=== PATIENT | male | born 1930 | race Caucasian/White ===

== ENCOUNTER 2016-06-14 | Outpatient (CLI) | payer MEDICARE | END 2016-06-14 10:16 | disposition EMS.NT ==

== ENCOUNTER 2016-07-22 08:11 | Day surgery (SDC) | payer MEDICARE, MEDICAID ==
[2016-07-22] MEDS ORDERED: PHENYLEPHRINE 2.5% OPHTH 2 ML DROPS ONE (08:20)
[2016-07-22] MEDS ORDERED: TRIAMCIN/MOXIFLOX/VANCO 1 ML VIAL IO ONE (08:31)
[2016-07-22] MEDS ORDERED: BSS/LIDOCAINE/EPINEPHRINE 1 ML SYRINGE IO ONE (08:31)
[2016-07-22] MEDS ORDERED: CHONDR SULF/HYALURONATE SYRINGE IO ONE (08:31)
[2016-07-22] MEDS ORDERED: BRIMONIDINE 0.2% OPHTH DROPS 5 ML OPTH ONE (08:31)
[2016-07-22] MEDS ORDERED: levoFLOXacin 0.5% OPHTH DROPS 5 ML OPTH ONE (08:31)
[2016-07-22] MEDS ORDERED: EPINEPHrine 1 MG/ML AMP IVP ONE (08:31)
[2016-07-22] MEDS ORDERED: KETOROLAC 0.45% OPHTH DROPS OPTH ONE (08:40)
[2016-07-22] MEDS ORDERED: CYCLOPENTOLATE 1% OPHTH DROPS 2 ML OPTH ONE (08:40)
[2016-07-22] MEDS ORDERED: PHENYLEPHRINE 2.5% OPHTH 2 ML DROPS OPTH ONE (08:40)
[2016-07-22] MEDS ORDERED: PROPARACAINE 0.5% OPHTH DROPS 15 ML OPTH ONE (08:40)
[2016-07-22] MEDS ORDERED: LACTATED RINGERS 500 ML IV ONE ×2 (09:00→09:29)
[2016-07-22] MEDS ORDERED: MIDAZOLAM 2 MG/2 ML VIAL IVP ONE (09:09)
== END 2016-07-22 08:12 | disposition home or self-care (01) ==
PROC: 08RK3JZ Replacement of Left Lens with Synthetic Substitute, Percutaneous Approach (ICD-10-PCS; principal; 2016-07-22 09:30)
DX: H25.12 Age-related nuclear cataract, left eye (principal); I10 Essential (primary) hypertension; E78.5 Hyperlipidemia, unspecified; Z83.3 Family history of diabetes mellitus; Z82.49 Family history of ischemic heart disease and other diseases of the circulatory system; Z83.511 Family history of glaucoma; Z82.61 Family history of arthritis
CPT/HCPCS: 66984; A9270; V2632

== ENCOUNTER 2016-08-05 07:58 | Outpatient (CLI) | payer MEDICARE, MEDICAID | END 2016-08-05 07:59 | disposition home or self-care (01) | DX: I10 Essential (primary) hypertension (principal); R73.01 Impaired fasting glucose; C61 Malignant neoplasm of prostate; E78.5 Hyperlipidemia, unspecified ==

== ENCOUNTER 2016-08-15 19:08 | Outpatient (CLI) | payer MEDICARE, MEDICAID | END 2016-08-15 19:09 | disposition EMS.NT | DX: Z03.89 Encounter for observation for other suspected diseases and conditions ruled out (principal) ==

== ENCOUNTER 2016-09-15 22:06 | Outpatient (CLI) | payer MEDICARE, MEDICAID | END 2016-09-15 22:07 | disposition EMS.NT | DX: Z03.89 Encounter for observation for other suspected diseases and conditions ruled out (principal); W01.0XXA Fall on same level from slipping, tripping and stumbling without subsequent striking against object, initial encounter; Y92.009 Unspecified place in unspecified non-institutional (private) residence as the place of occurrence of the external cause ==

== ENCOUNTER 2016-09-15 23:40 | Outpatient (CLI) | payer MEDICARE, MEDICAID | END 2016-09-15 23:41 | disposition EMS.NT | DX: Z03.89 Encounter for observation for other suspected diseases and conditions ruled out (principal); W01.0XXA Fall on same level from slipping, tripping and stumbling without subsequent striking against object, initial encounter; Y92.009 Unspecified place in unspecified non-institutional (private) residence as the place of occurrence of the external cause ==

== ENCOUNTER 2016-09-17 09:28 | Outpatient (CLI) | payer MEDICARE, MEDICAID | END 2016-09-17 09:29 | disposition EMS.NT | DX: M54.9 Dorsalgia, unspecified (principal); W01.0XXA Fall on same level from slipping, tripping and stumbling without subsequent striking against object, initial encounter; Y92.009 Unspecified place in unspecified non-institutional (private) residence as the place of occurrence of the external cause ==

== ENCOUNTER 2016-09-22 16:31 | Outpatient (CLI) | payer MEDICARE, MEDICAID | END 2016-09-22 23:59 | disposition EMS.NT | DX: M54.9 Dorsalgia, unspecified (principal) ==

== ENCOUNTER 2016-11-26 21:28 | Outpatient (CLI) | payer MEDICARE, MEDICAID | END 2016-11-26 21:29 | disposition EMS.NT | DX: Z03.89 Encounter for observation for other suspected diseases and conditions ruled out (principal); W01.0XXA Fall on same level from slipping, tripping and stumbling without subsequent striking against object, initial encounter; Y92.009 Unspecified place in unspecified non-institutional (private) residence as the place of occurrence of the external cause ==

== ENCOUNTER 2017-01-06 07:26 | Day surgery (SDC) | payer MEDICARE, MEDICAID ==
[~2017-01-06 07:26] MED LIST: BRIMONIDINE 0.2% OPHTH DROPS 5 ML ONE; CYCLOPENTOLATE 1% OPHTH DROPS 2 ML ONE; KETOROLAC 0.45% OPHTH DROPS ONE; PHENYLEPHRINE 2.5% OPHTH 2 ML DROPS ONE; PROPARACAINE 0.5% OPHTH DROPS 15 ML ONE; TIMOLOL 0.5% OPHTH DROPS ONE
[2017-01-06] MEDS ORDERED: LACTATED RINGERS 500 ML IV ONE (07:34)
[2017-01-06] MEDS ORDERED: PHENYLEPHRINE 2.5% OPHTH 2 ML DROPS OPTH ONE (07:45)
[2017-01-06] MEDS ORDERED: PROPARACAINE 0.5% OPHTH DROPS 15 ML OPTH ONE ×2 (07:45→09:00)
[2017-01-06] MEDS ORDERED: KETOROLAC 0.45% OPHTH DROPS OPTH ONE (07:45)
[2017-01-06] MEDS ORDERED: CYCLOPENTOLATE 1% OPHTH DROPS 2 ML OPTH ONE (07:45)
[2017-01-06] MEDS ORDERED: BSS/LIDOCAINE/EPINEPHRINE 1 ML SYRINGE IO ONE ×2 (09:00)
[2017-01-06] MEDS ORDERED: BRIMONIDINE 0.2% OPHTH DROPS 5 ML OPTH ONE (09:00)
[2017-01-06] MEDS ORDERED: TRIAMCIN/MOXIFLOX/VANCO 1 ML VIAL IO ONE ×2 (09:00)
[2017-01-06] MEDS ORDERED: TIMOLOL 0.5% OPHTH DROPS OPTH ONE (09:00)
[2017-01-06] MEDS ORDERED: CHONDR SULF/HYALURONATE SYRINGE IO ONE (09:00)
[2017-01-06] MEDS ORDERED: EPINEPHrine 1 MG/ML AMP IVP ONE (09:00)
[2017-01-06] MEDS ORDERED: LIDOCAINE-MPF 2% 5 ML VIAL IM ONE (09:04)
[2017-01-06] MEDS ORDERED: PROPOFOL 200 MG/20 ML VIAL IVP ONE (09:04)
[2017-01-06] MEDS ORDERED: MIDAZOLAM 2 MG/2 ML VIAL IVP ONE (09:04)
--- NOTE | 2017-01-06 09:46 | OPERATIVE REPORT ---
DATE OF SURGERY: 01/06/2017 00:00:00 PREOPERATIVE DIAGNOSIS: Visually significant cataract, right eye. This was a complex cataract surgery due to small pupil requiring pupil expansion, most likely due to the use of Flomax, so Malyugin ring was used. Cataract surgery was performed on the left eye 07/22/2016. POSTOPERATIVE DIAGNOSIS: Visually significant cataract, right eye. This was a complex cataract surger y due to small pupil requiring pupil expansion, most likely due to the use of Flomax, so Malyugin rin g was used. Cataract surgery was performed on the left eye on 07/22/2016. NAME OF PROCEDURE: Phacoemulsification of posterior chamber intraocular lens implant, right eye. SURGEON: Nabil Cabrera MD. ANESTHESIA: Monitored anesthesia care. COMPLICATIONS: None. OPERATIVE INDICATIONS: This is an 86-year-old man with progressive vision loss in the right eye due t o 3+ nuclear sclerotic cataract. Best corrected visual acuity was 20/50 with glare to 20/400 in the r ight eye. Indications for surgery were difficulty seeing words on the computer screen, difficulty ross ding, difficulty seeing words or game scores on TV. He was consented at length concerning the risks a nd benefits of cataract surgery, after which he expressed a desire to proceed with surgery. OPERATIVE PROCEDURE: The patient was taken into OR #2 and placed under monitored anesthesia care. A s urgical time-out was conducted confirming the correct patient, correct procedure and correct surgical site. He was given topical anesthesia and then prepped and draped in the usual sterile fashion. The eye was entered at the 12 and 9 o'clock positions. Intracameral Shugarcaine was injected into the ant erior chamber followed by Viscoat. A 7.0 mm Malyugin ring was then injected into the anterior chamber and engaged the pupil at 4 points to expand the pupil. A continuous tear curvilinear capsulorrhexis was performed. The nucleus was hydrodissected and phacoemulsified. The cortex was evacuated using aut omated infusion aspiration. Provisc was injected into the capsular bag and an 18.5 diopter intraocula r lens was inserted into the bag. Malyugin ring was then disinserted from the pupil margin and remove d from the anterior chamber. Approximately 0.7 mL of a mixture of triamcinolone, moxifloxacin, and va ncomycin was injected subconjunctivally in the superior quadrant for infection and inflammation proph ylaxis. I/A was used to evacuate the viscoelastic materials. The eye was inflated to physiologic pres sure using balanced salt solution and found to be watertight. The patient was taken from the [facility] room in good condition and given postoperative instructions. JOB #: [id number] EXT JOB #:[id number]
[2017-01-06 10:16] VITALS: BP 146/51
== END 2017-01-06 07:27 | disposition home or self-care (01) ==
LOC: SDS 07:26
PROVIDERS: ATTEND Ophthalmology
PROC: 08RJ3JZ Replacement of Right Lens with Synthetic Substitute, Percutaneous Approach (ICD-10-PCS; principal; 2017-01-06 09:00)
DX: H25.11 Age-related nuclear cataract, right eye (principal); I11.0 Hypertensive heart disease with heart failure; I50.9 Heart failure, unspecified; E78.5 Hyperlipidemia, unspecified; K21.9 Gastro-esophageal reflux disease without esophagitis; Z83.511 Family history of glaucoma; Z82.49 Family history of ischemic heart disease and other diseases of the circulatory system; Z83.3 Family history of diabetes mellitus; Z82.61 Family history of arthritis; Z85.46 Personal history of malignant neoplasm of prostate
CPT/HCPCS: 66982; A9270; J3490; V2632

== ENCOUNTER 2017-01-10 17:06 | Outpatient (CLI) | payer MEDICARE, MEDICAID | END 2017-01-10 17:07 | disposition short-term general hospital (02) | LOC: EMS 17:06 | PROVIDERS: ATTEND Surgery | DX: R07.81 Pleurodynia (principal); W18.30XA Fall on same level, unspecified, initial encounter; Z91.81 History of falling | CPT/HCPCS: A0425; A0429 ==

== ENCOUNTER 2017-02-02 17:40 | Outpatient (CLI) | payer MEDICARE, MEDICAID | END 2017-02-02 17:41 | disposition EMS.NT | LOC: EMS 17:40 | PROVIDERS: ATTEND Surgery | DX: S51.011A Laceration without foreign body of right elbow, initial encounter (principal); W18.30XA Fall on same level, unspecified, initial encounter; Y92.009 Unspecified place in unspecified non-institutional (private) residence as the place of occurrence of the external cause ==

== ENCOUNTER 2017-02-07 17:53 | Outpatient (CLI) | payer MEDICARE, MEDICAID | END 2017-02-07 17:54 | disposition EMS.NT | LOC: EMS 17:53 | PROVIDERS: ATTEND Surgery | DX: R53.1 Weakness (principal); W10.9XXA Fall (on) (from) unspecified stairs and steps, initial encounter; Y92.009 Unspecified place in unspecified non-institutional (private) residence as the place of occurrence of the external cause ==

== ENCOUNTER 2017-02-15 08:43 | Outpatient (CLI) | payer MEDICARE, MEDICAID | END 2017-02-15 08:44 | disposition EMS.NT | LOC: EMS 08:43 | PROVIDERS: ATTEND Surgery | DX: Z03.89 Encounter for observation for other suspected diseases and conditions ruled out (principal); W18.30XA Fall on same level, unspecified, initial encounter; Y92.003 Bedroom of unspecified non-institutional (private) residence as the place of occurrence of the external cause ==

== ENCOUNTER 2017-02-15 15:11 | Outpatient (CLI) | payer MEDICARE, MEDICAID | END 2017-02-15 15:12 | disposition critical access hospital (66) | LOC: EMS 15:11 | PROVIDERS: ATTEND Surgery | DX: R53.1 Weakness (principal); R41.0 Disorientation, unspecified; R26.81 Unsteadiness on feet | CPT/HCPCS: A0425; A0427 ==

== ENCOUNTER 2017-02-15 15:26 | Inpatient (IN) | payer MEDICARE, MEDICAID ==
--- NOTE | 2017-02-15 16:24 | ED Physician Documentation ---
PD HPI ALTERED MENTAL STATUS - Stated complaint Stated Complaint: FALL/CONFUSED - Chief complaint Chief Complaint: Neuro - History obtained from History obtained from: Patient, EMS - History of Present Illness Timing - onset: How many days ago (several days of general weakness, worseing. Had fallen few times. Head CT done here showed no acute process. ania) Timing - duration: Days Timing - details: Gradual onset, Other (general weakness.) Quality / character: Other (general weakness with recent falls now due to it.) Associated symptoms: NVD. 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 denies: Fever, Chills Nose: denies: Rhinorrhea / runny nose, Congestion Throat: denies: Sore throat Cardiac: denies: Chest pain / pressure, Palpitations Respiratory: denies: Dyspnea, Cough GI: reports: Nausea. denies: Vomiting, Diarrhea Neurologic: reports: Generalized weakness (resulting in several falls the past few days, and then could not get up from floor last night.). denies: Focal weakness, Numbness Psychiatric: denies: Depressed, Suicidal, Anxiety Endocrine: denies: Weight loss, Easy bruising / bleeding Immunocompromised: reports: Immunocompromised PD PAST MEDICAL HISTORY - Past Medical History Cardiovascular: Congestive heart failure, Hypertension, High cholesterol Respiratory: None Endocrine/Autoimmune: None GI: GERD : Benign prostate hypertrophy HEENT: Chronic vision loss, Chronic hearing loss, Other Psych: None Musculoskeletal: Osteoarthritis, Fatigue, Chronic back pain, Other Derm: Other - Past Surgical History HEENT: Cataracts - Present Medications Home Medications: Ambulatory Orders Medication Instructions Recorded Confirmed Lisinopril/Hydrochlorothiazide 2 tab PO DAILY 07/22/16 02/15/17 [Lisinopril-Hctz 20-25 mg Tab] Simvastatin 40 mg PO DAILY 07/22/16 02/15/17 Tamsulosin [Flomax] 0.4 mg PO DAILY 07/22/16 02/15/17 Aspirin 81 mg PO DAILY 02/15/17 02/15/17 Omeprazole [PriLOSEC] 20 mg PO DAILY 02/15/17 02/15/17 - Allergies Allergies/Adverse Reactions: Allergies Allergy/AdvReac Type Severity Reaction Status Date / Time No Known Drug Allergies Allergy Verified 07/20/15 14:47 - Living Situation Living Situation: reports: Alone Living Arrangement: reports: At home - Social History Does the pt smoke?: No Does the pt drink ETOH?: No Does the pt have substance abuse?: No - Family History Family history: reports: Non contributory - Immunizations Immunizations are current?: Yes PD ED PE NORMAL - General General: Alert and oriented X 3, No acute distress, Well developed/nourished, Other (moderately disheveled without basic grooming recently. ) - HEENT HEENT: Atraumatic, PERRL, Moist mucous membranes, Pharynx benign, Other ( abrasion with minimal tenderness top of head/scalp. ) - Neck Neck: Supple, no meningeal sign, No adenopathy, No JVD - Cardiac Cardiac: RRR, No murmur - Respiratory Respiratory: No respiratory distress, Other (some wheezing noted. No coarse sounds. ) - Abdomen Abdomen: Soft, Non tender - Male Male : Deferred - Rectal Rectal: Deferred - Back Back: No CVA TTP - Derm Derm: Normal color, Warm and dry - Extremities Extremities: Normal ROM s pain, No edema, No calf tenderness / cord - Neuro Neuro: Alert and oriented X 3, No sensory deficit, Normal speech, Other ( generally weaker with unable to lift legs and get around. ) - Psych Psych: Normal mood, Normal affect Results - Vitals Vitals: Vital Signs - 24 hr 02/15/17 02/15/17 02/15/17 15:28 18:34 19:18 Temperature 36.6 C Heart Rate 67 71 73 Respiratory 15 16 16 Rate Blood Pressure 104/44 L 100/86 H 122/90 H O2 Saturation 98 96 99 Oxygen O2 Source Room air - Labs Labs: Laboratory Tests 02/15/17 02/15/17 02/15/17 16:48 17:03 17:03 WBC 15.6 H RBC 3.50 L Hgb 11.8 L Hct 34.9 L MCV 99.7 H MCH 33.7 H MCHC 33.8 RDW 13.8 Plt Count 148 MPV 8.6 Neut # 13.0 H Lymph # 1.6 [place] # 1.0 Eos # 0.1 Baso # 0.0 Absolute Nucleated RBC 0.00 Nucleated RBC % 0.0 Sodium 122 L Potassium 4.2 Chloride 88 L Carbon Dioxide 26 Anion Gap 8.0 BUN 21 H Creatinine 1.1 Estimated GFR (MDRD) 63 L Glucose 126 H Calcium 8.4 L Magnesium 1.6 L Total Bilirubin 1.1 H AST 90 H ALT 30 Alkaline Phosphatase 143 H Total Creatine Kinase 861 H Total Protein 5.9 L Albumin 2.7 L Globulin 3.2 Albumin/Globulin Ratio 0.8 L Lipase 17 L TSH Urine Color YELLOW Urine Clarity CLEAR Urine pH 5.5 Ur Specific [place] <=1.005 Urine Protein NEGATIVE Urine Glucose (UA) NEGATIVE Urine Ketones NEGATIVE Urine Occult Blood NEGATIVE Urine Nitrite NEGATIVE Urine Bilirubin NEGATIVE Urine Urobilinogen 0.2 (NORMAL) Ur Leukocyte Esterase NEGATIVE Ur Microscopic Review NOT INDICATED Urine Culture Comments NOT INDICATED Ethyl Alcohol < 5.0 02/15/17 17:03 WBC RBC Hgb Hct MCV MCH MCHC RDW Plt Count MPV Neut # Lymph # [place] # Eos # Baso # Absolute Nucleated RBC Nucleated RBC % Sodium Potassium Chloride Carbon Dioxide Anion Gap BUN Creatinine Estimated GFR (MDRD) Glucose Calcium Magnesium Total Bilirubin AST ALT Alkaline Phosphatase Total Creatine Kinase Total Protein Albumin Globulin Albumin/Globulin Ratio Lipase TSH 3.47 Urine Color Urine Clarity Urine pH Ur Specific [place] Urine Protein Urine Glucose (UA) Urine Ketones Urine Occult Blood Urine Nitrite Urine Bilirubin Urine Urobilinogen Ur Leukocyte Esterase Ur Microscopic Review Urine Culture Comments Ethyl Alcohol - Rads (name of study) head CT Radiology: Prelim report reviewed (no acute process seen. No bleeding. ) PD MEDICAL DECISION MAKING - ED course Complexity details: reviewed results (CT head okay. labs are showing some elevation CK to 800s. UA is okay. He is generally weak. Had been unable to get up from floor. Poor social support as well. ), re-evaluated patient (still general weakness, unable to get himself up, low sodium acutely. Consider infection. ), considered differential, d/w patient Departure - Departure Disposition: ED Place in Observation Clinical Impression: Weakness, Hyponatremia, Elevated creatine kinase level Fall from slip, trip, or stumble Qualifiers: Encounter type: initial encounter Qualified Code(s): W01.0XXA - Fall on same level from slipping, tripping and stumbling without subsequent striking against object, initial encounter Condition: Stable Record reviewed to determine appropriate education?: Yes Discharge Date/Time: 02/15/17 20:30
[2017-02-15] MEDS ORDERED: SODIUM CHLORIDE 0.9% 1,000 ML IV ONE ×2 (16:44→19:06)
[2017-02-15 17:10] LABS: BASOPHILS % (AUTO) 0.2 %; EOSINOPHILS # (AUTO) 0.1 10^3/uL (0.0-0.7); EOSINOPHILS % (AUTO) 0.5 %; HCT - HEMATOCRIT 34.9 % (42.0-52.0); HGB - HEMOGLOBIN 11.8 g/dL (14.0-18.0); LYMPHOCYTES # (AUTO) 1.6 10^3/uL (1.5-3.5); LYMPHOCYTES % (AUTO) 10.2 %; MEAN CORPUSCULAR HEMOGLOBIN 33.7 pg (27.0-31.0); MEAN CORPUSCULAR HGB CONC 33.8 g/dL (32.0-36.0); MEAN CORPUSCULAR VOLUME 99.7 fL (80.0-94.0); MEAN PLATELET VOLUME 8.6 fL (7.4-11.4); MONOCYTES % (AUTO) 6.2 %; NEUTROPHILS % (AUTO) 82.9 %; RED CELL DISTRIBUTION WIDTH 13.8 % (12.0-15.0); UNCORRECTED WHITE BLOOD COUNT 15.6 x10^3/uL; WHITE BLOOD COUNT 15.6 x10^3/uL (4.8-10.8)
[2017-02-15 17:27] LABS: ALBUMIN/GLOBULIN RATIO 0.8 (1.0-2.2); BILIRUBIN,TOTAL 1.1 mg/dL (0.2-1.0); BUN - BLOOD UREA NITROGEN 21 mg/dL (6-20); CALCIUM 8.4 mg/dL (8.5-10.3); CARBON DIOXIDE - CO2 26 mmol/L (21-32); CHLORIDE 88 mmol/L (101-111); CREATININE 1.1 mg/dL (0.6-1.2); GFR - MDRD 63 (>89); GLUCOSE 126 mg/dL (70-100); LIPASE 17 U/L (22-51); MAGNESIUM 1.6 mg/dL (1.7-2.8); POTASSIUM 4.2 mmol/L (3.5-5.0); SODIUM 122 mmol/L (135-145); TOTAL PROTEIN 5.9 g/dL (6.7-8.2)
[2017-02-15 17:33] LABS: BILIRUBIN,URINE NEGATIVE (NEGATIVE); PH,URINE 5.5 PH (5.0-7.5)
[2017-02-15 17:34] LABS: UA CHARGE (STRIP ONLY) YES; UR CULTURE IF IND NOT INDICATED
--- NOTE | 2017-02-15 18:54 | CT Preliminary Report ---
Exam: CT Head W/O IMPRESSION: No acute intracranial CT abnormality. No evidence of hemorrhage or mass effect. [facility] SITE ID: [id number]
--- NOTE | 2017-02-15 18:57 | CT Report ---
EXAM: CT HEAD EXAM DATE: 02/15/2017 06:27 PM. CLINICAL HISTORY: Fell last night, struck head; weakness today. COMPARISON: 07/20/2015. TECHNIQUE: Multiaxial CT images were obtained from the foramen magnum to the vertex. IV contrast: Non e. Reformats: Coronal. In accordance with CT protocol optimization, one or more of the following dose reduction techniques w ere utilized for this exam: automated exposure control, adjustment of mA and/or KV based on patient s ize, or use of iterative reconstructive technique. FINDINGS: Parenchyma: No intraparenchymal hemorrhage. No evidence of mass, midline shift, or CT findings of acu te infarction. Scattered periventricular white matter hypodensity may represent small vessel ischemic disease. Extraaxial Spaces: There is generalized volume loss. No subdural or epidural collections identified. Ventricles: Normal in size and position. Sinuses: Imaged paranasal sinuses, orbits, and mastoids show no significant abnormality. Bones: No evidence of fracture or calvarial defect. Other: None. IMPRESSION: No acute intracranial CT abnormality. No evidence of hemorrhage or mass effect. [facility] Referring Provider Line: [phone] SITE ID: [id number]
[2017-02-15] MEDS ORDERED: MAGNESIUM SULFATE 2 GM in SODIUM CHLORIDE 0.9% 50 ML IV ONE (19:52)
[2017-02-15] MEDS ORDERED: ONDANSETRON 4 MG/2 ML VIAL IVP PRN (19:52)
[2017-02-15] MEDS ORDERED: PROCHLORPERAZINE 10 MG/2 ML VIAL IVP PRN (19:52)
[2017-02-15] MEDS ORDERED: ACETAMINOPHEN 325 MG TABLET PO PRN (19:52)
[2017-02-15] MEDS ORDERED: SODIUM CHLORIDE FLUSH 0.9% 10 ML SYRINGE IVP PRN (19:52)
--- NOTE | 2017-02-15 21:08 | XRAY Preliminary Report ---
Exam: XR Chest 1 View IMPRESSION: 1. New airspace disease in the right lung. Differential considerations include pneumonia, aspiration, pneumonitis, or asymmetric edema. [facility] SITE ID: [id number]
--- NOTE | 2017-02-15 21:10 | XRAY Report ---
EXAM: CHEST RADIOGRAPHY EXAM DATE: 02/15/2017 08:17 PM. CLINICAL HISTORY: Leukocytosis and generalized weakness. COMPARISON: 10/27/2009. TECHNIQUE: 1 view. FINDINGS: Lungs/Pleura: There are hazy and interstitial nodular densities in the right lung. There are low lung volumes which appear chronic and unchanged. The left lung appears unchanged. Negative for pneumothor ax. Mediastinum: Mediastinal contour within normal limits. Other: None. IMPRESSION: 1. New airspace disease in the right lung. Differential considerations include pneumonia, aspiration, pneumonitis, or asymmetric edema. Javier HAYES Referring Provider Line: [phone] SITE ID: [id number]
[2017-02-15] MEDS: SODIUM CHLORIDE 0.9% 1,000 ML IV SCH (21:52)
[2017-02-15] MEDS: SODIUM CHLORIDE FLUSH 0.9% 10 ML SYRINGE IVP SCH (21:52)
--- NOTE | 2017-02-15 22:31 | HISTORY & PHYSICAL EXAMINATION ---
Chief Complaint - Chief Complaint Chief Complaint: Generalized weakness History of Present Illness - Admitted From Admitted From:: Emergency Department - History Obtained From Records Reviewed: Yes History obtained from: Patient Exam Limitations: None - History of Present Illness HPI Comment/Other: Patient is an 86-year-old gentleman with a past medical history significant for hypertension, prostate cancer status post prostatectomy in remission, hyperlipidemia, osteoarthritis and GERD who presented to the emergency department with a chief complaint of generalized weakness. The patient states that he was in his normal state of health until this past week when he states he has been having frequent falls. He states that over the last 3 days he is fallen 3 times the previous 2 times he was able to get himself up or get up with assistance. He states that last night he had just gotten out of the shower and was going back to his bed when he slipped and fell to the floor. He states that he was unable to get up from the floor and his Lifeline was out of reach therefore he was not able to get to his Lifeline. The patient states that he laid on the floor through out the night and then into the day until home health arrived at his home and noticed him on the floor. At that point EMS was called and the patient was brought into the emergency department. The patient states that he has had frequent falls over the last 6 months and recently had a fall a month ago after which he had severe pain in the left lateral chest and posterior chest. The patient states that he saw his primary care physician for this pain and was found to have rib fractures. The patient has since been using Tylenol 3 to manage this pain. He states that he continues to have pain in that left side. The patient also states that for the past few days he is also noted that he has a sore throat and has been coughing. He states that he does get coughing spells when he drinks coffee. The patient states that last night he was too weak to get himself up from the floor. The patient otherwise denies any fevers or chills. The patient denies any headache, blurred vision, runny nose, chest pain, orthopnea, PND, he states that he easily gets fatigued when exerting himself but denies any shortness of breath at rest, abdominal pain, nausea, diarrhea, urinary urgency, urinary frequency, dysuria, joint swelling, he does admit to bilateral knee pain from arthritis, he denies any neck stiffness, back pain, or neurologic deficits. On presentation to the emergency department the patient was afebrile, he was mildly hypotensive with a blood pressure of 104/44 but otherwise was not in any respiratory distress and was not hypoxic. The patient underwent routine lab work including a CBC which revealed the patient had a WBC count of 15.6. The patient's chemistry showed that he was hyponatremic with a sodium of 122, hypochloremic with a chloride of 188, hypomagnesemic with a magnesium of 1.6 and had an elevated CPK. The patient's urine analysis was negative. The patient's chest x-ray showed new airspace disease in the right lung and given his elevated white blood cell count, cough and generalized weakness this was thought likely to be a pneumonia. The patient was admitted to the [facility] for pneumonia and dehydration. History - Past Medical History Cardiovascular: reports: Hypertension, High cholesterol Respiratory: reports: None Endocrine/Autoimmune: reports: None GI: reports: GERD : reports: Benign prostate hypertrophy, Other (Prostate Cancer s/p Prostatectomy) HEENT: reports: Chronic vision loss, Chronic hearing loss, Other Psych: reports: None Musculoskeletal: reports: Osteoarthritis, Fatigue, Chronic back pain, Other Derm: reports: Other MRSA Hx?: No - Past Surgical History /RIVETER HAND: reports: Other (Prostatectomy ) HEENT: reports: Cataracts - Family & Social History Family History: Mother: (Father when patient was 9), Diabetes, Type 2, Father: , Sister: Cancer (Hodgkins Lymphoma), Brother: CAD Living arrangement: At home Living Situation: Alone Social History Notes: The patient lives alone in his home and [place]. The patient has been living in [place] since the . The patient is originally from [place], [place]. The patient was in the Armed [employer] during [employer] War II and then went back to the [place] during the [place] War. The patient was but is , his 2 months ago. The patient now lives alone he does have a caregiver that comes in 2-3 times a week. The patient has never had any children and he states that he has no living relatives. The patient states he has never smoked he does drink about 3 beers a week and denies any illicit drug use. - Substance History Use: Uses substance without health or social issues: NONE Abuse: Recurrent use of substance despite neg consequences: NONE Dependence: Experiences withdrawal or developed tolerances: NONE - POLST Patient has POLST: No POLST Status: DNR Meds/Allgy - Home Medications Home Medications: Ambulatory Orders Medication Instructions Recorded Confirmed Lisinopril/Hydrochlorothiazide 2 tab PO DAILY 07/22/16 02/15/17 [Lisinopril-Hctz 20-25 mg Tab] Simvastatin 40 mg PO DAILY 07/22/16 02/15/17 Tamsulosin [Flomax] 0.4 mg PO DAILY 07/22/16 02/15/17 Aspirin 81 mg PO DAILY 02/15/17 02/15/17 Omeprazole [PriLOSEC] 20 mg PO DAILY 02/15/17 02/15/17 - Allergies Allergies/Adverse Reactions: Allergies Allergy/AdvReac Type Severity Reaction Status Date / Time No Known Drug Allergies Allergy Verified 07/20/15 14:47 Review of Systems - Other Findings Other Findings: A comprehensive review of systems was performed the pertinent positives and negatives are stated above in the HPI and the remainder of the review of systems is negative. Exam - Vital Signs Reviewed Vital Signs: Yes Vital Signs: Vital Signs x48h Pulse Resp BP Pulse Ox 02/15/17 20:12 75 18 101/67 99 - Physical Exam General Appearance: positive: No acute distress, Alert Eyes Bilateral: positive: Normal inspection, PERRL, EOMI, No lid inflammation, Conjunctivae nml, No scleral icterus ENT: positive: ENT inspection nml, Pharynx nml, Dry mucous membranes. negative : Purulent nasal drainage, Pharyngeal erythema, Oral lesions Neck: positive: Nml inspection, Thyroid nml, No JVD, Trachea midline. negative : Thyromegaly, Lymphadenopathy (R), Lymphadenopathy (L), Stiff neck, Carotid bruit, Tracheal deviation Respiratory: positive: Chest non-tender, Rhonchi (right lower lung). negative: Wheezes, Rales Cardiovascular: positive: Regular rate & rhythm, No murmur, No gallop Peripheral Pulses: positive: 2+ Abdomen: positive: Non-tender, No organomegaly, Nml bowel sounds, No distention. negative: Guarding, Rebound, Hepatomegaly Back: positive: Nml inspection. negative: CVA tenderness (R), CVA tenderness (L ) Skin: positive: No rash, Dry. negative: Cyanosis, Diaphoresis, Decubitus Extremities: positive: Non-tender, Full ROM, Nml appearance, Pedal edema (mild bilateral) Neurologic/Psychiatric: positive: Oriented x3, CN's nml (2-12), Motor nml, Sensation nml, Mood/affect nml, Weakness (General no focal weakness) Conclusion/Plan - Problem List (1) CAP (community acquired pneumonia) Conclusion/Plan: The patient presented after a fall due to generalized weakness and inability to stand up after the fall. The patient appeared to be quite dry on presentation with a leukocytosis of 15.6. Patient also had a sodium of 122. The patient did admit to having cough for the last several days but had no fevers or chills. The patient's chest x-ray showed new airspace disease in the right lung suspicious for pneumonia. Plan: Given the patient's presentation with generalized weakness, cough and finding of right airspace disease on chest x-ray the patient will be admitted for community-acquired pneumonia. We will continue to monitor the patient's swallow as he did state that he coughs when he drinks coffee and there is some concern given the right-sided infiltrate that the patient could have aspiration. Patient will be placed on IV ceftriaxone and azithromycin Patient will be evaluated by physical therapy Patient will be given IV fluids Qualifiers: Laterality: right (2) Hyponatremia Conclusion/Plan: The patient presented with generalized weakness and appeared very dry on examination. Patient's sodium was found to be 122. According to the emergency room physician the patient was also confused on presentation however his confusion seems to have completely resolved. The patient is on lisinopril and hydrochlorothiazide which could contribute to hyponatremia. Patient's sodium in the past has been in the 130s. The patient does have a significant hyponatremia that could have caused his confusion when he presented to the emergency department. Patient appears to have hypovolemic hyponatremia likely a combination of the patient's pneumonia, dehydration and use of lisinopril and hydrochlorothiazide. Plan: Patient will be given IV fluids with normal saline We will monitor the patient's sodium We will hold patient's lisinopril and hydrochlorothiazide We will treat the patient's pneumonia. (3) Generalized weakness Conclusion/Plan: The patient has generalized weakness as he was unable to get up from the floor at his home after falling. The patient's weakness appears to have been going on for some time now as the patient has been having frequent falls recently. He states part of it is due to the fact that he has bad arthritis in his knees and has a difficult time walking. The patient does use a walker at home. Patient also likely has increased generalized weakness secondary to pneumonia and dehydration. Plan: Patient will be given IV fluids as he does appear to be dehydrated We will treat the patient's pneumonia We will hold the patient's antihypertensive medication as he was hypotensive on presentation and this could be contributing to his hyponatremia as well as his generalized weakness. (4) Rhabdomyolysis Conclusion/Plan: The patient has mild rhabdo with a CK of 861. This is likely secondary to him having laid on the floor for greater than 12 hours. The patient does not have any significant renal failure and does not have any blood in the urine. Plan: We will give the patient IV fluids and recheck CK in the morning. Qualifiers: Rhabdomyolysis type: non-traumatic Qualified Code(s): M62.82 - Rhabdomyolysis (5) Hypomagnesemia Conclusion/Plan: The patient's magnesium is 1.6 on presentation Patient likely has hypomagnesemia secondary to dehydration Plan: We will replace the patient's magnesium Monitor magnesium (6) Hypertension Conclusion/Plan: The patient has a history of hypertension and is on hydrochlorothiazide and lisinopril. However on presentation the patient had borderline low blood pressure. His blood pressure may be decreased due to his infection but the patient also appeared to be dehydrated and it is possible that he may no longer require his antihypertensive medication. The hydrochlorothiazide could be contributing to the patient's hyponatremia. Plan: We will hold antihypertensive medications and give patient IV fluids while he is hospitalized. We will have patient follow-up with his PCP to decide whether he needs to continue to be on antihypertensive medication. Qualifiers: Hypertension type: essential hypertension Qualified Code(s): I10 - Essential (primary) hypertension (7) Hyperlipidemia Conclusion/Plan: The patient has history of hyperlipidemia and does use a statin. Patient will be continued on his home dose of statin. (8) Prophylactic use of low molecular weight heparin for venous thromboembolism (VTE) Conclusion/Plan: Place patient on Lovenox while he is hospitalized for DVT prophylaxis. - Lab Results Lab results reviewed: Yes Fish Bones: 02/15/17 17:03 02/15/17 17:03 Other Lab Results: Laboratory Results WBC 15.6 x10^3/uL (4.8-10.8) H 02/15/17 17:03 RBC 3.50 10^6/uL (4.70-6.10) L 02/15/17 17:03 Hgb 11.8 g/dL (14.0-18.0) L 02/15/17 17:03 Hct 34.9 % (42.0-52.0) L 02/15/17 17:03 MCV 99.7 fL (80.0-94.0) H 02/15/17 17:03 MCH 33.7 pg (27.0-31.0) H 02/15/17 17:03 MCHC 33.8 g/dL (32.0-36.0) 02/15/17 17:03 RDW 13.8 % (12.0-15.0) 02/15/17 17:03 Plt Count 148 10^3/uL (130-450) 02/15/17 17:03 MPV 8.6 fL (7.4-11.4) 02/15/17 17:03 Neut # 13.0 10^3/uL (1.5-6.6) H 02/15/17 17:03 Lymph # 1.6 10^3/uL (1.5-3.5) 02/15/17 17:03 [place] # 1.0 10^3/uL (0.0-1.0) 02/15/17 17:03 Eos # 0.1 10^3/uL (0.0-0.7) 02/15/17 17:03 Baso # 0.0 10^3/uL (0.0-0.1) 02/15/17 17:03 Absolute Nucleated RBC 0.00 x10^3/uL 02/15/17 17:03 Nucleated RBC % 0.0 /100WBC 02/15/17 17:03 Sodium 122 mmol/L (135-145) L 02/15/17 17:03 Potassium 4.2 mmol/L (3.5-5.0) 02/15/17 17:03 Chloride 88 mmol/L (101-111) L 02/15/17 17:03 Carbon Dioxide 26 mmol/L (21-32) 02/15/17 17:03 Anion Gap 8.0 (6-13) 02/15/17 17:03 BUN 21 mg/dL (6-20) H 02/15/17 17:03 Creatinine 1.1 mg/dL (0.6-1.2) 02/15/17 17:03 Estimated GFR (MDRD) 63 (>89) L 02/15/17 17:03 Glucose 126 mg/dL (70-100) H 02/15/17 17:03 Calcium 8.4 mg/dL (8.5-10.3) L 02/15/17 17:03 Magnesium 1.6 mg/dL (1.7-2.8) L 02/15/17 17:03 Total Bilirubin 1.1 mg/dL (0.2-1.0) H 02/15/17 17:03 AST 90 IU/L (10-42) H 02/15/17 17:03 ALT 30 IU/L (10-60) 02/15/17 17:03 Alkaline Phosphatase 143 IU/L (42-121) H 02/15/17 17:03 Total Creatine Kinase 861 IU/L (22-269) H 02/15/17 17:03 Total Protein 5.9 g/dL (6.7-8.2) L 02/15/17 17:03 Albumin 2.7 g/dL (3.2-5.5) L 02/15/17 17:03 Globulin 3.2 g/dL (2.1-4.2) 02/15/17 17:03 Albumin/Globulin Ratio 0.8 (1.0-2.2) L 02/15/17 17:03 Lipase 17 U/L (22-51) L 02/15/17 17:03 TSH 3.47 uIU/mL (0.34-5.60) 02/15/17 17:03 Urine Color YELLOW 02/15/17 16:48 Urine Clarity CLEAR (CLEAR) 02/15/17 16:48 Urine pH 5.5 PH (5.0-7.5) 02/15/17 16:48 Ur Specific [place] <=1.005 (1.002-1.030) 02/15/17 16:48 Urine Protein NEGATIVE mg/dL (NEGATIVE) 02/15/17 16:48 Urine Glucose (UA) NEGATIVE mg/dL (NEGATIVE) 02/15/17 16:48 Urine Ketones NEGATIVE mg/dL (NEGATIVE) 02/15/17 16:48 Urine Occult Blood NEGATIVE (NEGATIVE) 02/15/17 16:48 Urine Nitrite NEGATIVE (NEGATIVE) 02/15/17 16:48 Urine Bilirubin NEGATIVE (NEGATIVE) 02/15/17 16:48 Urine Urobilinogen 0.2 (NORMAL) E.U./dL (NORMAL) 02/15/17 16:48 Ur Leukocyte Esterase NEGATIVE (NEGATIVE) 02/15/17 16:48 Ur Microscopic Review NOT INDICATED 02/15/17 16:48 Urine Culture Comments NOT INDICATED 02/15/17 16:48 Ethyl Alcohol < 5.0 mg/dL 02/15/17 17:03 - Diagnostic Imaging Results Diagnostic Imaging Results: positive: Final report reviewed Diagnostic Imaging Results Comments: Chest x-ray Impression: 1. New airspace disease in the right lung. Differential considerations include pneumonia, aspiration, pneumonitis or asymmetric edema. CT head Impression: No acute intracranial CT abnormality. No evidence of hemorrhage or mass-effect. Issues/Core Measures - Anticipated LOS Anticipated Stay Length: 2 or more midnights - DVT/VTE - Prophylaxis VTE/DVT Prophylaxis med ordered at admit?: Yes
[2017-02-15] MEDS: cefTRIAXone 2 GM in SODIUM CHLORIDE 0.9% MINIBAG 100 ML IV SCH (23:35)
[2017-02-16] MEDS: AZITHROMYCIN INJ 500 MG in SODIUM CHLORIDE 0.9% 250 ML IV SCH ×2 (00:25→22:21)
[2017-02-16] MEDS: SODIUM CHLORIDE FLUSH 0.9% 10 ML SYRINGE IVP SCH ×3 (03:42→21:43)
[2017-02-16] MEDS: SODIUM CHLORIDE 0.9% 1,000 ML IV SCH ×3 (04:48→21:43)
[2017-02-16 05:58] LABS: BASOPHILS % (AUTO) 0.4 %; EOSINOPHILS # (AUTO) 0.1 10^3/uL (0.0-0.7); EOSINOPHILS % (AUTO) 1.1 %; HCT - HEMATOCRIT 33.8 % (42.0-52.0); HGB - HEMOGLOBIN 11.5 g/dL (14.0-18.0); LYMPHOCYTES # (AUTO) 1.3 10^3/uL (1.5-3.5); LYMPHOCYTES % (AUTO) 12.3 %; MEAN CORPUSCULAR VOLUME 100.1 fL (80.0-94.0); MEAN PLATELET VOLUME 8.2 fL (7.4-11.4); MONOCYTES # (AUTO) 0.6 10^3/uL (0.0-1.0); MONOCYTES % (AUTO) 6.2 %; NEUTROPHILS # (AUTO) 8.2 10^3/uL (1.5-6.6); RED BLOOD COUNT 3.37 10^6/uL (4.70-6.10); UNCORRECTED WHITE BLOOD COUNT 10.2 x10^3/uL; WHITE BLOOD COUNT 10.2 x10^3/uL (4.8-10.8)
[2017-02-16 06:09] LABS: ALBUMIN/GLOBULIN RATIO 0.8 (1.0-2.2); BILIRUBIN,TOTAL 0.6 mg/dL (0.2-1.0); CALCIUM 8.2 mg/dL (8.5-10.3); MAGNESIUM 1.9 mg/dL (1.7-2.8); PHOSPHORUS 2.6 mg/dL (2.5-4.6); POTASSIUM 3.8 mmol/L (3.5-5.0); TOTAL PROTEIN 5.6 g/dL (6.7-8.2)
[2017-02-16] MEDS ORDERED: ZINC OXIDE 20% OINT 28.35 GM TUBE TOP ONE (08:22)
[2017-02-16] MEDS: IBUPROFEN 400 MG TABLET PO PRN ×2 (08:40→18:11)
[2017-02-16] MEDS: HYDROcod/ACETAM 5/325 MG TABLET PO PRN ×3 (08:40→21:44)
[2017-02-16] MEDS: POLYETHYLENE GLYCOL 3350 17 GM PACKET PO SCH (08:51)
[2017-02-16] MEDS: ENOXAPARIN 40 MG/0.4 ML SYRINGE SUBQ SCH (09:49)
[2017-02-16] MEDS: FAMOTIDINE 20 MG TABLET PO SCH (09:49)
[2017-02-16] MEDS: TAMSULOSIN 0.4 MG CAPSULE PO SCH (09:49)
[2017-02-16] MEDS: ASPIRIN CHEW 81 MG TABLET PO SCH (09:49)
--- NOTE | 2017-02-16 15:35 | PROVIDER PROGRESS NOTE ---
Assessment/Plan - Problem List (1) CAP (community acquired pneumonia) Qualifiers: Laterality: right Assessment/Plan: Pt improving but has not ambulated Continue antibiotics and present course of Tx (2) Generalized weakness Assessment/Plan: Pt not yet OOB Will check orthostatic VS Will need eval by PT before DCh (3) Fall from slip, trip, or stumble Qualifiers: Encounter type: subsequent encounter Qualified Code(s): W01.0XXD - Fall on same level from slipping, tripping and stumbling without subsequent striking against object, subsequent encounter Assessment/Plan: As above (4) Rhabdomyolysis Qualifiers: Rhabdomyolysis type: non-traumatic Qualified Code(s): M62.82 - Rhabdomyolysis Assessment/Plan: CPK improving with hydration and rest Continue plan (5) Hypertension Qualifiers: Hypertension type: essential hypertension Qualified Code(s): I10 - Essential (primary) hypertension Assessment/Plan: Stable on current meds (6) Hypomagnesemia Assessment/Plan: Improved with replacement - Current Meds Current Meds: Current Medications Generic Name Dose Route Start Last Admin Trade Name Freq PRN Reason Stop Dose Admin Acetaminophen/Hydrocodone [place] 1 tab 02/15/17 21:59 02/16/17 08:40 [place] 5/325 PO 1 tab Q4HR PRN Administration PAIN Aspirin 81 mg 02/16/17 09:00 02/16/17 09:49 [place] Aspirin PO 81 mg DAILY RAMIREZ Administration Enoxaparin Sodium 40 mg 02/16/17 09:00 02/16/17 09:49 Lovenox SUBQ 40 mg DAILY RAMIREZ Administration Famotidine 20 mg 02/16/17 09:00 02/16/17 09:49 Pepcid PO 20 mg DAILY RAMIREZ Administration Sodium Chloride 1,000 mls @ 125 mls/hr 02/15/17 20:00 02/16/17 12:52 Normal Saline 0.9% IV 125 mls/hr .Q8H RAMIREZ Administration Azithromycin 500 mg/ Sodium 250 mls @ 250 mls/hr 02/15/17 23:00 02/16/17 01: 27 Chloride IV Infused Q24H RAMIREZ Infusion Ceftriaxone Sodium 2 gm/ 100 mls @ 200 mls/hr 02/15/17 22:30 02/16/17 00:06 Sodium Chloride IV Infused Q24H RAMIREZ Infusion Ibuprofen 400 mg 02/15/17 19:52 02/16/17 08:40 Motrin PO 400 mg Q4HR PRN Administration Pain 1 to 4 Polyethylene Glycol 17 gm 02/16/17 09:00 02/16/17 08:51 Miralax PO Not Given DAILY [facility] Sodium Chloride 10 ml 02/15/17 22:00 02/16/17 07:30 Normal Saline Flush 0.9% IVP Not Given Q8HR RAMIREZ Tamsulosin HCl 0.4 mg 02/16/17 09:00 02/16/17 09:49 Flomax PO 0.4 mg DAILY RAMIREZ Administration - Lab Result Fish Bone Diagrams: 02/16/17 05:48 02/16/17 05:48 - Additional Planning My Orders: My Active Orders 02/16/17 CUL, RESPIRATORY [RM] Routine Clinical Swallow Eval w/Modified ST [ST] Routine 02/17/17 05:00 CK- CREATINE KINASE [CHEM] Routine Subjective - Subjective Patient Reports: Feeling Better Nursing Reports: Other (Very [place]) Objective Vital Signs: Vital Signs - 24 hr 02/15/17 02/16/17 02/16/17 23:30 07:40 11:35 Temperature 36.7 C 36.9 C Heart Rate [ 71 61 Brachial] Respiratory 16 16 Rate Blood Pressure 130/50 L [Left Brachial artery] Blood Pressure 114/58 L [Right Brachial artery] Blood Pressure 105/44 L [Supine] O2 Saturation 98 97 Oxygen O2 Source Room air I&O (Last 24 Hrs): Intake and Output Totals x24h 02/14/17 02/15/17 02/16/17 23:59 23:59 23:59 Intake Total 1824 Output Total 850 Balance 974 General: Alert HEENT: Other ([place] and R sided hearing aide fell out) Neck: No JVD, +2 carotid pulse wo bruit Cardiovascular: Regular rate, No murmurs Respiratory: No respiratory distress, Breath sounds nml Abdomen: Soft Extremities: No clubbing, No edema - Results Results: Laboratory Results WBC 10.2 x10^3/uL (4.8-10.8) 02/16/17 05:48 RBC 3.37 10^6/uL (4.70-6.10) L 02/16/17 05:48 Hgb 11.5 g/dL (14.0-18.0) L 02/16/17 05:48 Hct 33.8 % (42.0-52.0) L 02/16/17 05:48 MCV 100.1 fL (80.0-94.0) H 02/16/17 05:48 MCH 34.0 pg (27.0-31.0) H 02/16/17 05:48 MCHC 34.0 g/dL (32.0-36.0) 02/16/17 05:48 RDW 14.0 % (12.0-15.0) 02/16/17 05:48 Plt Count 133 10^3/uL (130-450) 02/16/17 05:48 MPV 8.2 fL (7.4-11.4) 02/16/17 05:48 Neut # 8.2 10^3/uL (1.5-6.6) H 02/16/17 05:48 Lymph # 1.3 10^3/uL (1.5-3.5) L 02/16/17 05:48 [place] # 0.6 10^3/uL (0.0-1.0) 02/16/17 05:48 Eos # 0.1 10^3/uL (0.0-0.7) 02/16/17 05:48 Baso # 0.0 10^3/uL (0.0-0.1) 02/16/17 05:48 Absolute Nucleated RBC 0.00 x10^3/uL 02/16/17 05:48 Nucleated RBC % 0.0 /100WBC 02/16/17 05:48 Sodium 132 mmol/L (135-145) L 02/16/17 05:48 Potassium 3.8 mmol/L (3.5-5.0) 02/16/17 05:48 Chloride 98 mmol/L (101-111) L 02/16/17 05:48 Carbon Dioxide 25 mmol/L (21-32) 02/16/17 05:48 Anion Gap 9.0 (6-13) 02/16/17 05:48 BUN 17 mg/dL (6-20) 02/16/17 05:48 Creatinine 1.0 mg/dL (0.6-1.2) 02/16/17 05:48 Estimated GFR (MDRD) 71 (>89) L 02/16/17 05:48 Glucose 118 mg/dL (70-100) H 02/16/17 05:48 Lactic Acid 1.0 mmol/L (0.5-2.2) 02/16/17 05:48 Calcium 8.2 mg/dL (8.5-10.3) L 02/16/17 05:48 Phosphorus 2.6 mg/dL (2.5-4.6) 02/16/17 05:48 Magnesium 1.9 mg/dL (1.7-2.8) 02/16/17 05:48 Total Bilirubin 0.6 mg/dL (0.2-1.0) 02/16/17 05:48 AST 45 IU/L (10-42) H 02/16/17 05:48 ALT 24 IU/L (10-60) 02/16/17 05:48 Alkaline Phosphatase 125 IU/L (42-121) H 02/16/17 05:48 Total Creatine Kinase 413 IU/L (22-269) H 02/16/17 05:48 Total Protein 5.6 g/dL (6.7-8.2) L 02/16/17 05:48 Albumin 2.4 g/dL (3.2-5.5) L 02/16/17 05:48 Globulin 3.2 g/dL (2.1-4.2) 02/16/17 05:48 Albumin/Globulin Ratio 0.8 (1.0-2.2) L 02/16/17 05:48 Lipase 17 U/L (22-51) L 02/15/17 17:03 TSH 3.47 uIU/mL (0.34-5.60) 02/15/17 17:03 Urine Color YELLOW 02/15/17 16:48 Urine Clarity CLEAR (CLEAR) 02/15/17 16:48 Urine pH 5.5 PH (5.0-7.5) 02/15/17 16:48 Ur Specific [place] <=1.005 (1.002-1.030) 02/15/17 16:48 Urine Protein NEGATIVE mg/dL (NEGATIVE) 02/15/17 16:48 Urine Glucose (UA) NEGATIVE mg/dL (NEGATIVE) 02/15/17 16:48 Urine Ketones NEGATIVE mg/dL (NEGATIVE) 02/15/17 16:48 Urine Occult Blood NEGATIVE (NEGATIVE) 02/15/17 16:48 Urine Nitrite NEGATIVE (NEGATIVE) 02/15/17 16:48 Urine Bilirubin NEGATIVE (NEGATIVE) 02/15/17 16:48 Urine Urobilinogen 0.2 (NORMAL) E.U./dL (NORMAL) 02/15/17 16:48 Ur Leukocyte Esterase NEGATIVE (NEGATIVE) 02/15/17 16:48 Ur Microscopic Review NOT INDICATED 02/15/17 16:48 Urine Culture Comments NOT INDICATED 02/15/17 16:48 Ethyl Alcohol < 5.0 mg/dL 02/15/17 17:03 - Procedures Procedures: Procedures REPLACEMENT OF LEFT LENS WITH SYNTH SUB, PERC APPROACH (07/22/16) REPLACEMENT OF RIGHT LENS WITH SYNTH SUB, PERC APPROACH (01/06/17)
[2017-02-16] MEDS: cefTRIAXone 2 GM in SODIUM CHLORIDE 0.9% MINIBAG 100 ML IV SCH (21:43)
[2017-02-17] MEDS: IBUPROFEN 400 MG TABLET PO PRN ×3 (04:15→20:57)
[2017-02-17] MEDS: HYDROcod/ACETAM 5/325 MG TABLET PO PRN ×3 (04:16→20:58)
[2017-02-17] MEDS: SODIUM CHLORIDE 0.9% 1,000 ML IV SCH (06:08)
[2017-02-17] MEDS: SODIUM CHLORIDE FLUSH 0.9% 10 ML SYRINGE IVP SCH (06:09)
[2017-02-17 06:15] LABS: BASOPHILS % (AUTO) 0.4 %; EOSINOPHILS # (AUTO) 0.1 10^3/uL (0.0-0.7); EOSINOPHILS % (AUTO) 1.7 %; HCT - HEMATOCRIT 30.4 % (42.0-52.0); HGB - HEMOGLOBIN 10.2 g/dL (14.0-18.0); LYMPHOCYTES # (AUTO) 1.1 10^3/uL (1.5-3.5); LYMPHOCYTES % (AUTO) 14.5 %; MEAN CORPUSCULAR HEMOGLOBIN 33.9 pg (27.0-31.0); MEAN CORPUSCULAR HGB CONC 33.5 g/dL (32.0-36.0); MEAN CORPUSCULAR VOLUME 101.3 fL (80.0-94.0); MEAN PLATELET VOLUME 8.3 fL (7.4-11.4); MONOCYTES # (AUTO) 0.9 10^3/uL (0.0-1.0); MONOCYTES % (AUTO) 11.9 %; NEUTROPHILS # (AUTO) 5.6 10^3/uL (1.5-6.6); NEUTROPHILS % (AUTO) 71.5 %; RED CELL DISTRIBUTION WIDTH 13.9 % (12.0-15.0); UNCORRECTED WHITE BLOOD COUNT 7.8 x10^3/uL; WHITE BLOOD COUNT 7.8 x10^3/uL (4.8-10.8)
[2017-02-17 06:21] LABS: ALBUMIN/GLOBULIN RATIO 0.8 (1.0-2.2); BILIRUBIN,TOTAL 0.6 mg/dL (0.2-1.0); CALCIUM 7.8 mg/dL (8.5-10.3); CREATININE 0.8 mg/dL (0.6-1.2); POTASSIUM 3.9 mmol/L (3.5-5.0); TOTAL PROTEIN 5.3 g/dL (6.7-8.2)
[2017-02-17] MEDS: ENOXAPARIN 40 MG/0.4 ML SYRINGE SUBQ SCH (08:46)
--- NOTE | 2017-02-17 08:46 | XRAY Report ---
TWO-VIEW CERVICAL SPINE: 02/17/2017 CLINICAL INDICATION: Fall, neck pain. FINDINGS: Frontal and lateral views of the cervical spine were obtained. Imaging on the lateral vie w is markedly limited, with visualization to C5. Degenerative changes are present in the upper cervi johanna spine. The visualized prevertebral soft tissues are unremarkable. IMPRESSION: MARKEDLY LIMITED IMAGING OF THE CERVICAL SPINE, WITH NO EVIDENCE OF FRACTURE IN THE UPPE R PORTION. CONSIDER CT FOR FURTHER EVALUATION. JOB #: [id number] EXT JOB #:[id number]
[2017-02-17] MEDS: FAMOTIDINE 20 MG TABLET PO SCH (08:47)
[2017-02-17] MEDS: TAMSULOSIN 0.4 MG CAPSULE PO SCH (08:47)
[2017-02-17] MEDS: ASPIRIN CHEW 81 MG TABLET PO SCH (08:47)
[2017-02-17] MEDS: POLYETHYLENE GLYCOL 3350 17 GM PACKET PO SCH (10:43)
--- NOTE | 2017-02-17 14:06 | PROVIDER PROGRESS NOTE ---
Assessment/Plan - Problem List (1) CAP (community acquired pneumonia) Qualifiers: Laterality: right Assessment/Plan: Aspiration pneumonia is suspected by clinical findings of dysphagia and R sided pneumonia. iv fell out and could not be restarted after 6 attempts. Will transition iv antibiotics to Augmentin 875 mg po bid. Pt will be DCh on this to complete a 7 day course. Plan DCh tomorrow to SNF (2) Generalized weakness Assessment/Plan: Slightly better mobility today, using a quad walker and takes about 5 steps Continue plan for SNF after DCh (3) Fall from slip, trip, or stumble Qualifiers: Encounter type: subsequent encounter Qualified Code(s): W01.0XXD - Fall on same level from slipping, tripping and stumbling without subsequent striking against object, subsequent encounter Assessment/Plan: No falls here. No c/o dizziness or lightheadedness. Will check orthostatic VS, if not yet done. (4) Rhabdomyolysis Qualifiers: Rhabdomyolysis type: non-traumatic Qualified Code(s): M62.82 - Rhabdomyolysis Assessment/Plan: Resolved with hydration. Since Pt taking po diet adequately, will cancel a restart of iv and iv fluids (5) Hypertension Qualifiers: Hypertension type: essential hypertension Qualified Code(s): I10 - Essential (primary) hypertension Assessment/Plan: Stable on current meds - Current Meds Current Meds: Current Medications Generic Name Dose Route Start Last Admin Trade Name Freq PRN Reason Stop Dose Admin Acetaminophen/Hydrocodone Bitart 1 tab 02/15/17 21:59 02/17/17 13:14 [place] 5/325 PO 1 tab Q4HR PRN Administration PAIN Aspirin 81 mg 02/16/17 09:00 02/17/17 08:47 [place] Aspirin PO 81 mg DAILY RAMIREZ Administration Enoxaparin Sodium 40 mg 02/16/17 09:00 02/17/17 08:46 Lovenox SUBQ 40 mg DAILY RAMIREZ Administration Famotidine 20 mg 02/16/17 09:00 02/17/17 08:47 Pepcid PO 20 mg DAILY RAMIREZ Administration Ibuprofen 400 mg 02/15/17 19:52 02/17/17 13:15 Motrin PO 400 mg Q4HR PRN Administration Pain 1 to 4 Polyethylene Glycol 17 gm 02/16/17 09:00 02/17/17 10:43 Miralax PO Not Given DAILY RAMIREZ Tamsulosin HCl 0.4 mg 02/16/17 09:00 02/17/17 08:47 Flomax PO 0.4 mg DAILY RAMIREZ Administration - Lab Result Fish Bone Diagrams: 02/17/17 05:17 02/17/17 05:17 - Additional Planning My Orders: My Active Orders 02/17/17 15:00 Amox/Clav 875/125 [Augmentin 875/125] 1 tab PO BID 02/17/17 Breakfast Dysphagia Puree Diet [DIET] 02/17/17 Dinner Dysphagia Puree Diet [DIET] Subjective - Subjective Patient Reports: Feeling Better Nursing Reports: No Complaints Objective Vital Signs: Vital Signs - 24 hr 02/16/17 02/16/17 02/17/17 19:11 21:44 00:42 Temperature 36.5 C 36.8 C 37 C Heart Rate [ 77 64 91 Brachial] Respiratory 17 17 20 Rate Blood Pressure 128/55 L 125/74 140/60 H [Right Brachial artery] O2 Saturation 98 96 98 02/17/17 07:34 Temperature 36.8 C Heart Rate [ 54 L Brachial] Respiratory 18 Rate Blood Pressure 126/94 H [Right Brachial artery] O2 Saturation 95 Oxygen O2 Source Room air I&O (Last 24 Hrs): Intake and Output Totals x24h 02/15/17 02/16/17 02/17/17 23:59 23:59 23:59 Intake Total 2414 860 Output Total 1050 450 Balance 1364 410 General: Alert HEENT: Other ([place]) Neck: No JVD Cardiovascular: Regular rate, No murmurs Respiratory: No respiratory distress, Breath sounds nml Abdomen: Soft Extremities: Other (Trace edema) - Results Results: Laboratory Results WBC 7.8 x10^3/uL (4.8-10.8) 02/17/17 05:17 RBC 3.00 10^6/uL (4.70-6.10) L 02/17/17 05:17 Hgb 10.2 g/dL (14.0-18.0) L 02/17/17 05:17 Hct 30.4 % (42.0-52.0) L 02/17/17 05:17 MCV 101.3 fL (80.0-94.0) H 02/17/17 05:17 MCH 33.9 pg (27.0-31.0) H 02/17/17 05:17 MCHC 33.5 g/dL (32.0-36.0) 02/17/17 05:17 RDW 13.9 % (12.0-15.0) 02/17/17 05:17 Plt Count 128 10^3/uL (130-450) L 02/17/17 05:17 MPV 8.3 fL (7.4-11.4) 02/17/17 05:17 Neut # 5.6 10^3/uL (1.5-6.6) 02/17/17 05:17 Lymph # 1.1 10^3/uL (1.5-3.5) L 02/17/17 05:17 [place] # 0.9 10^3/uL (0.0-1.0) 02/17/17 05:17 Eos # 0.1 10^3/uL (0.0-0.7) 02/17/17 05:17 Baso # 0.0 10^3/uL (0.0-0.1) 02/17/17 05:17 Absolute Nucleated RBC 0.00 x10^3/uL 02/17/17 05:17 Nucleated RBC % 0.0 /100WBC 02/17/17 05:17 Sodium 133 mmol/L (135-145) L 02/17/17 05:17 Potassium 3.9 mmol/L (3.5-5.0) 02/17/17 05:17 Chloride 99 mmol/L (101-111) L 02/17/17 05:17 Carbon Dioxide 27 mmol/L (21-32) 02/17/17 05:17 Anion Gap 7.0 (6-13) 02/17/17 05:17 BUN 14 mg/dL (6-20) 02/17/17 05:17 Creatinine 0.8 mg/dL (0.6-1.2) 02/17/17 05:17 Estimated GFR (MDRD) 91 (>89) 02/17/17 05:17 Glucose 108 mg/dL (70-100) H 02/17/17 05:17 Lactic Acid 1.0 mmol/L (0.5-2.2) 02/16/17 05:48 Calcium 7.8 mg/dL (8.5-10.3) L 02/17/17 05:17 Phosphorus 2.6 mg/dL (2.5-4.6) 02/16/17 05:48 Magnesium 1.9 mg/dL (1.7-2.8) 02/16/17 05:48 Total Bilirubin 0.6 mg/dL (0.2-1.0) 02/17/17 05:17 AST 35 IU/L (10-42) 02/17/17 05:17 ALT 24 IU/L (10-60) 02/17/17 05:17 Alkaline Phosphatase 138 IU/L (42-121) H 02/17/17 05:17 Total Creatine Kinase 161 IU/L (22-269) 02/17/17 05:17 Total Protein 5.3 g/dL (6.7-8.2) L 02/17/17 05:17 Albumin 2.3 g/dL (3.2-5.5) L 02/17/17 05:17 Globulin 3.0 g/dL (2.1-4.2) 02/17/17 05:17 Albumin/Globulin Ratio 0.8 (1.0-2.2) L 02/17/17 05:17 Lipase 17 U/L (22-51) L 02/15/17 17:03 TSH 3.47 uIU/mL (0.34-5.60) 02/15/17 17:03 Urine Color YELLOW 02/15/17 16:48 Urine Clarity CLEAR (CLEAR) 02/15/17 16:48 Urine pH 5.5 PH (5.0-7.5) 02/15/17 16:48 Ur Specific [place] <=1.005 (1.002-1.030) 02/15/17 16:48 Urine Protein NEGATIVE mg/dL (NEGATIVE) 02/15/17 16:48 Urine Glucose (UA) NEGATIVE mg/dL (NEGATIVE) 02/15/17 16:48 Urine Ketones NEGATIVE mg/dL (NEGATIVE) 02/15/17 16:48 Urine Occult Blood NEGATIVE (NEGATIVE) 02/15/17 16:48 Urine Nitrite NEGATIVE (NEGATIVE) 02/15/17 16:48 Urine Bilirubin NEGATIVE (NEGATIVE) 02/15/17 16:48 Urine Urobilinogen 0.2 (NORMAL) E.U./dL (NORMAL) 02/15/17 16:48 Ur Leukocyte Esterase NEGATIVE (NEGATIVE) 02/15/17 16:48 Ur Microscopic Review NOT INDICATED 02/15/17 16:48 Urine Culture Comments NOT INDICATED 02/15/17 16:48 Ethyl Alcohol < 5.0 mg/dL 02/15/17 17:03 - Procedures Procedures: Procedures REPLACEMENT OF LEFT LENS WITH SYNTH SUB, PERC APPROACH (07/22/16) REPLACEMENT OF RIGHT LENS WITH SYNTH SUB, PERC APPROACH (01/06/17)
[2017-02-17] MEDS: AMOX/CLAV 875 MG/125 MG TABLET PO SCH ×2 (16:15→20:57)
[2017-02-18 06:15] LABS: BASOPHILS % (AUTO) 0.4 %; EOSINOPHILS # (AUTO) 0.1 10^3/uL (0.0-0.7); EOSINOPHILS % (AUTO) 1.8 %; HCT - HEMATOCRIT 33.2 % (42.0-52.0); HGB - HEMOGLOBIN 11.3 g/dL (14.0-18.0); LYMPHOCYTES # (AUTO) 1.5 10^3/uL (1.5-3.5); LYMPHOCYTES % (AUTO) 21.2 %; MEAN CORPUSCULAR HEMOGLOBIN 34.1 pg (27.0-31.0); MEAN CORPUSCULAR VOLUME 100.3 fL (80.0-94.0); MEAN PLATELET VOLUME 7.9 fL (7.4-11.4); MONOCYTES # (AUTO) 1.1 10^3/uL (0.0-1.0); MONOCYTES % (AUTO) 14.9 %; NEUTROPHILS # (AUTO) 4.5 10^3/uL (1.5-6.6); NEUTROPHILS % (AUTO) 61.7 %; RED BLOOD COUNT 3.31 10^6/uL (4.70-6.10); RED CELL DISTRIBUTION WIDTH 13.8 % (12.0-15.0); UNCORRECTED WHITE BLOOD COUNT 7.2 x10^3/uL; WHITE BLOOD COUNT 7.2 x10^3/uL (4.8-10.8)
[2017-02-18] MEDS: POLYETHYLENE GLYCOL 3350 17 GM PACKET PO SCH (07:49)
[2017-02-18] MEDS: ASPIRIN CHEW 81 MG TABLET PO SCH (08:44)
[2017-02-18] MEDS: TAMSULOSIN 0.4 MG CAPSULE PO SCH (08:45)
[2017-02-18] MEDS: ENOXAPARIN 40 MG/0.4 ML SYRINGE SUBQ SCH (08:45)
[2017-02-18] MEDS: AMOX/CLAV 875 MG/125 MG TABLET PO SCH ×2 (08:45→21:39)
[2017-02-18] MEDS: FAMOTIDINE 20 MG TABLET PO SCH (08:45)
--- NOTE | 2017-02-18 17:51 | PROVIDER PROGRESS NOTE ---
Assessment/Plan - Problem List (1) CAP (community acquired pneumonia) Qualifiers: Laterality: right Assessment/Plan: Improving on antibiotics (2) Generalized weakness Assessment/Plan: PT advises SNF but Pt is refusing. No family to help him make decisions. He gets home health care and Social Work has applied for more frequent visits Will assess for safety of [facility] tomorrow (3) Fall from slip, trip, or stumble Qualifiers: Encounter type: subsequent encounter Qualified Code(s): W01.0XXD - Fall on same level from slipping, tripping and stumbling without subsequent striking against object, subsequent encounter Assessment/Plan: As above. (4) Rhabdomyolysis Qualifiers: Rhabdomyolysis type: non-traumatic Qualified Code(s): M62.82 - Rhabdomyolysis Assessment/Plan: Resolved (5) Hypertension Qualifiers: Hypertension type: essential hypertension Qualified Code(s): I10 - Essential (primary) hypertension Assessment/Plan: Stable on current meds - Current Meds Current Meds: Current Medications Generic Name Dose Route Start Last Admin Trade Name Freq PRN Reason Stop Dose Admin Acetaminophen/Hydrocodone Bitart 1 tab 02/15/17 21:59 02/17/17 20:58 [place] 5/325 PO 1 tab Q4HR PRN Administration PAIN Amoxicillin/Clavulanate Potassium 1 tab 02/17/17 15:00 02/18/17 08:45 Augmentin 875/125 PO 1 tab BID RAMIREZ Administration Aspirin 81 mg 02/16/17 09:00 02/18/17 08:44 [facility] [place] Aspirin PO 81 mg DAILY RAMIREZ Administration Enoxaparin Sodium 40 mg 02/16/17 09:00 02/18/17 08:45 Lovenox SUBQ 40 mg DAILY RAMIREZ Administration Famotidine 20 mg 02/16/17 09:00 02/18/17 08:45 Pepcid PO 20 mg DAILY RAMIREZ Administration Ibuprofen 400 mg 02/15/17 19:52 02/17/17 20:57 Motrin PO 400 mg Q4HR PRN Administration Pain 1 to 4 Polyethylene Glycol 17 gm 02/16/17 09:00 02/18/17 07:49 Miralax PO Not Given DAILY RAMIREZ Tamsulosin HCl 0.4 mg 02/16/17 09:00 02/18/17 08:45 Flomax PO 0.4 mg DAILY RAMIREZ Administration - Lab Result Fish Bone Diagrams: 02/18/17 05:36 02/17/17 05:17 Subjective - Subjective Patient Reports: Feeling Better, Resting Comfortably Nursing Reports: Other (Nurses and PT reports that pt is trying to stand on his own and is "unsteady and at risk for falls".) Objective Vital Signs: Vital Signs - 24 hr 02/18/17 02/18/17 02/18/17 00:00 07:31 15:26 Temperature 36.9 C 36.4 C L 37.5 C Heart Rate [ 75 74 116 H Brachial] Respiratory 18 18 20 Rate Blood Pressure 150/62 H 140/45 H 146/71 H [Right Brachial artery] O2 Saturation 99 96 98 Oxygen O2 Source Room air I&O (Last 24 Hrs): Intake and Output Totals x24h 02/16/17 02/17/17 02/18/17 23:59 23:59 23:59 Intake Total 2414 1580 1620 Output Total 1050 450 150 Balance 1364 1130 1470 General: Other ([place]) HEENT: Mucous membr. moist/pink Neck: Supple Cardiovascular: Regular rate Respiratory: No respiratory distress, Breath sounds nml Abdomen: Soft Extremities: No edema - Results Results: Laboratory Results WBC 7.2 x10^3/uL (4.8-10.8) 02/18/17 05:36 RBC 3.31 10^6/uL (4.70-6.10) L 02/18/17 05:36 Hgb 11.3 g/dL (14.0-18.0) L 02/18/17 05:36 Hct 33.2 % (42.0-52.0) L 02/18/17 05:36 MCV 100.3 fL (80.0-94.0) H 02/18/17 05:36 MCH 34.1 pg (27.0-31.0) H 02/18/17 05:36 MCHC 34.0 g/dL (32.0-36.0) 02/18/17 05:36 RDW 13.8 % (12.0-15.0) 02/18/17 05:36 Plt Count 151 10^3/uL (130-450) 02/18/17 05:36 MPV 7.9 fL (7.4-11.4) 02/18/17 05:36 Neut # 4.5 10^3/uL (1.5-6.6) 02/18/17 05:36 Lymph # 1.5 10^3/uL (1.5-3.5) 02/18/17 05:36 [place] # 1.1 10^3/uL (0.0-1.0) H 02/18/17 05:36 Eos # 0.1 10^3/uL (0.0-0.7) 02/18/17 05:36 Baso # 0.0 10^3/uL (0.0-0.1) 02/18/17 05:36 Absolute Nucleated RBC 0.00 x10^3/uL 02/18/17 05:36 Nucleated RBC % 0.0 /100WBC 02/18/17 05:36 Sodium 133 mmol/L (135-145) L 02/17/17 05:17 Potassium 3.9 mmol/L (3.5-5.0) 02/17/17 05:17 Chloride 99 mmol/L (101-111) L 02/17/17 05:17 Carbon Dioxide 27 mmol/L (21-32) 02/17/17 05:17 Anion Gap 7.0 (6-13) 02/17/17 05:17 BUN 14 mg/dL (6-20) 02/17/17 05:17 Creatinine 0.8 mg/dL (0.6-1.2) 02/17/17 05:17 Estimated GFR (MDRD) 91 (>89) 02/17/17 05:17 Glucose 108 mg/dL (70-100) H 02/17/17 05:17 Lactic Acid 1.0 mmol/L (0.5-2.2) 02/16/17 05:48 Calcium 7.8 mg/dL (8.5-10.3) L 02/17/17 05:17 Phosphorus 2.6 mg/dL (2.5-4.6) 02/16/17 05:48 Magnesium 1.9 mg/dL (1.7-2.8) 02/16/17 05:48 Total Bilirubin 0.6 mg/dL (0.2-1.0) 02/17/17 05:17 AST 35 IU/L (10-42) 02/17/17 05:17 ALT 24 IU/L (10-60) 02/17/17 05:17 Alkaline Phosphatase 138 IU/L (42-121) H 02/17/17 05:17 Total Creatine Kinase 161 IU/L (22-269) 02/17/17 05:17 Total Protein 5.3 g/dL (6.7-8.2) L 02/17/17 05:17 Albumin 2.3 g/dL (3.2-5.5) L 02/17/17 05:17 Globulin 3.0 g/dL (2.1-4.2) 02/17/17 05:17 Albumin/Globulin Ratio 0.8 (1.0-2.2) L 02/17/17 05:17 Lipase 17 U/L (22-51) L 02/15/17 17:03 TSH 3.47 uIU/mL (0.34-5.60) 02/15/17 17:03 Urine Color YELLOW 02/15/17 16:48 Urine Clarity CLEAR (CLEAR) 02/15/17 16:48 Urine pH 5.5 PH (5.0-7.5) 02/15/17 16:48 Ur Specific [place] <=1.005 (1.002-1.030) 02/15/17 16:48 Urine Protein NEGATIVE mg/dL (NEGATIVE) 02/15/17 16:48 Urine Glucose (UA) NEGATIVE mg/dL (NEGATIVE) 02/15/17 16:48 Urine Ketones NEGATIVE mg/dL (NEGATIVE) 02/15/17 16:48 Urine Occult Blood NEGATIVE (NEGATIVE) 02/15/17 16:48 Urine Nitrite NEGATIVE (NEGATIVE) 02/15/17 16:48 Urine Bilirubin NEGATIVE (NEGATIVE) 02/15/17 16:48 Urine Urobilinogen 0.2 (NORMAL) E.U./dL (NORMAL) 02/15/17 16:48 Ur Leukocyte Esterase NEGATIVE (NEGATIVE) 02/15/17 16:48 Ur Microscopic Review NOT INDICATED 02/15/17 16:48 Urine Culture Comments NOT INDICATED 02/15/17 16:48 Ethyl Alcohol < 5.0 mg/dL 02/15/17 17:03 - Procedures Procedures: Procedures REPLACEMENT OF LEFT LENS WITH SYNTH SUB, PERC APPROACH (07/22/16) REPLACEMENT OF RIGHT LENS WITH SYNTH SUB, PERC APPROACH (01/06/17)
[2017-02-18] MEDS ORDERED: HALOPERIDOL 5 MG/ML VIAL IM ONE (18:22)
[2017-02-18 18:39] LABS: BASOPHILS % (AUTO) 0.5 %; EOSINOPHILS % (AUTO) 0.4 %; HCT - HEMATOCRIT 34.9 % (42.0-52.0); HGB - HEMOGLOBIN 11.7 g/dL (14.0-18.0); LYMPHOCYTES # (AUTO) 1.3 10^3/uL (1.5-3.5); LYMPHOCYTES % (AUTO) 15.2 %; MEAN CORPUSCULAR HEMOGLOBIN 33.5 pg (27.0-31.0); MEAN CORPUSCULAR HGB CONC 33.5 g/dL (32.0-36.0); MEAN PLATELET VOLUME 7.5 fL (7.4-11.4); MONOCYTES # (AUTO) 1.4 10^3/uL (0.0-1.0); MONOCYTES % (AUTO) 15.7 %; NEUTROPHILS % (AUTO) 68.2 %; RED BLOOD COUNT 3.49 10^6/uL (4.70-6.10); RED CELL DISTRIBUTION WIDTH 13.9 % (12.0-15.0); UNCORRECTED WHITE BLOOD COUNT 8.8 x10^3/uL; WHITE BLOOD COUNT 8.8 x10^3/uL (4.8-10.8)
[2017-02-18] MEDS: HYDROcod/ACETAM 5/325 MG TABLET PO PRN (18:52)
[2017-02-18 18:57] LABS: ALBUMIN/GLOBULIN RATIO 0.7 (1.0-2.2); BILIRUBIN,TOTAL 0.7 mg/dL (0.2-1.0); BUN - BLOOD UREA NITROGEN 13 mg/dL (6-20); CALCIUM 8.3 mg/dL (8.5-10.3); CARBON DIOXIDE - CO2 23 mmol/L (21-32); CHLORIDE 91 mmol/L (101-111); CREATININE 0.8 mg/dL (0.6-1.2); GFR - MDRD 91 (>89); GLUCOSE 142 mg/dL (70-100); POTASSIUM 4.2 mmol/L (3.5-5.0); SODIUM 126 mmol/L (135-145); TOTAL PROTEIN 6.4 g/dL (6.7-8.2)
[2017-02-18 19:08] LABS: CALCIUM, IONIZED 1.07 mmol/L (1.15-1.33); VBG PH 7.45 (7.31-7.41)
[2017-02-18 19:26] LABS: PLATELET ESTIMATE, MANUAL NORMAL (130-450,000) (NORMAL); PLATELET MORPHOLOGY NORMAL APPEARANCE (NORMAL); WBC MORPHOLOGY (MULTIPLE) 1+ HYPERSEG NEUT (NORMAL)
[2017-02-18] MEDS: IBUPROFEN 400 MG TABLET PO PRN (19:30)
[2017-02-18] MEDS ORDERED: diazePAM INJ 5 MG/ML SYRINGE IVP SCH (19:41)
[2017-02-18] MEDS ORDERED: diazePAM INJ 5 MG/ML SYRINGE IM SCH (19:59)
--- NOTE | 2017-02-18 21:51 | CT Report ---
EXAM: CT HEAD EXAM DATE: 02/18/2017 08:21 PM. CLINICAL HISTORY: Delerium, R/O CVA. COMPARISON: CT scan of the head 02/15/2017, 07/20/2015. TECHNIQUE: Multiaxial CT images were obtained from the foramen magnum to the vertex. IV contrast: Non e. Reformats: Coronal. In accordance with CT protocol optimization, one or more of the following dose reduction techniques w ere utilized for this exam: automated exposure control, adjustment of mA and/or KV based on patient s ize, or use of iterative reconstructive technique. FINDINGS: Parenchyma: Age-related volume loss is seen. Patchy area of vertical and underlying white matter hypo density is seen posteromedially at the junction of the left parietal and occipital lobes. Wedge-shape d area of hypodensity is seen in the posterior inferior right cerebellum. These are Unchanged. No int racranial mass or hemorrhage is seen. Moderate vascular calcifications are seen in the cavernous ICA. Extraaxial Spaces: Normal for age. No subdural or epidural collections identified. Ventricles: No hydrocephalus. Sinuses and orbits: Imaged paranasal sinuses, orbits, and mastoids show no significant abnormality. N ote is made of bilateral lens removal. Bones: No evidence of fracture or calvarial defect. Other: None. IMPRESSION: 1. Negative noncontrast CT scan of the head. No acute abnormality. 2. 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 These are seen posteromedially at the lef t parieto-occipital junction and in the posterior inferior right cerebellum. 3. Intracranial atherosclerotic vascular calcifications. [facility] Referring Provider Line: [phone] SITE ID: [id number]
[2017-02-18] MEDS: MAGNESIUM OXIDE 400 MG TABLET PO SCH (22:43)
[2017-02-19] MEDS ORDERED: OLANZapine 10 MG VIAL IM SCH (00:26)
[2017-02-19] MEDS ORDERED: LORazepam 2 MG/ML SYRINGE IVP PRN (00:27)
[2017-02-19] MEDS ORDERED: OLANZapine 10 MG VIAL IM ONE (00:35)
[2017-02-19] MEDS ORDERED: WATER FOR INJECTION,STERILE 10 ML ONE (00:38)
[2017-02-19] MEDS ORDERED: LORazepam 2 MG/ML SYRINGE IM PRN (01:10)
[2017-02-19] MEDS: HYDROcod/ACETAM 5/325 MG TABLET PO PRN (04:56)
[2017-02-19] MEDS: MAGNESIUM OXIDE 400 MG TABLET PO SCH ×2 (08:18→20:19)
[2017-02-19] MEDS: ENOXAPARIN 40 MG/0.4 ML SYRINGE SUBQ SCH (08:24)
[2017-02-19] MEDS: ASPIRIN CHEW 81 MG TABLET PO SCH (08:24)
[2017-02-19] MEDS: AMOX/CLAV 875 MG/125 MG TABLET PO SCH (08:24)
--- NOTE | 2017-02-19 10:59 | XRAY Preliminary Report ---
Exam: XR Chest 1 View IMPRESSION: Hypoventilation. Progressive airspace opacities. [facility] SITE ID: [id number]
--- NOTE | 2017-02-19 11:02 | XRAY Report ---
EXAM: CHEST RADIOGRAPHY EXAM DATE: 02/19/2017 10:37 AM. CLINICAL HISTORY: F/U pneumonia. COMPARISON: 02/15/2017. TECHNIQUE: 1 view. FINDINGS: Lungs/Pleura: Hypoventilation. Bilateral airspace opacities again noted. More focal consolidation is now evident in the right upper lobe distribution. No pneumothorax or pleural effusion. Mediastinum: Within exam limitations, the cardiomediastinal contour is stable. IMPRESSION: Hypoventilation. Progressive airspace opacities, as described. [facility] Referring Provider Line: [phone] SITE ID: [id number]
[2017-02-19] MEDS: FAMOTIDINE 20 MG TABLET PO SCH (11:25)
[2017-02-19] MEDS: TAMSULOSIN 0.4 MG CAPSULE PO SCH (11:26)
[2017-02-19] MEDS ORDERED: MAGNESIUM SULFATE 2 GRAM 2 GM/50 ML BAG IV SCH ×2 (11:30→14:00)
[2017-02-19] MEDS: POLYETHYLENE GLYCOL 3350 17 GM PACKET PO SCH (11:40)
[2017-02-19] MEDS: PIPERACILLIN/TAZOBACTAM 3.375 GM in SODIUM CHLORIDE 0.9% MINIBAG 100 ML IV SCH ×2 (15:59→21:55)
[2017-02-19] MEDS ORDERED: SODIUM CHLORIDE FLUSH 0.9% 10 ML SYRINGE IVP ONE ×2 (19:17→22:28)
--- NOTE | 2017-02-19 21:59 | PROVIDER PROGRESS NOTE ---
Assessment/Plan - Problem List (1) CAP (community acquired pneumonia) Qualifiers: Laterality: right Assessment/Plan: Repeat CXR showed more dense consolidation Will change to iv antibiotics for community acquired asoiration pneumonia with Zosyn (2) Generalized weakness Assessment/Plan: Pt still unsteady, walked to BR with quad walker Continue PT (3) Fall from slip, trip, or stumble Qualifiers: Encounter type: subsequent encounter Qualified Code(s): W01.0XXD - Fall on same level from slipping, tripping and stumbling without subsequent striking against object, subsequent encounter (4) Rhabdomyolysis Qualifiers: Rhabdomyolysis type: non-traumatic Qualified Code(s): M62.82 - Rhabdomyolysis (5) Hypertension Qualifiers: Hypertension type: essential hypertension Qualified Code(s): I10 - Essential (primary) hypertension - Current Meds Current Meds: Current Medications Generic Name Dose Route Start Last Admin Trade Name Freq PRN Reason Stop Dose Admin Acetaminophen/Hydrocodone Bitart 1 tab 02/15/17 21:59 02/19/17 04:56 [place] 5/325 PO 1 tab Q4HR PRN Administration PAIN Aspirin 81 mg 02/16/17 09:00 02/19/17 08:24 [facility] [place] Aspirin PO 81 mg DAILY RAMIREZ Administration Enoxaparin Sodium 40 mg 02/16/17 09:00 02/19/17 08:24 Lovenox SUBQ 40 mg DAILY RAMIREZ Administration Famotidine 20 mg 02/16/17 09:00 02/19/17 11:25 Pepcid PO 20 mg DAILY RAMIREZ Administration Piperacillin Sod/Tazobactam 100 mls @ 200 mls/hr 02/19/17 16:00 02/19/17 21: 55 Sod 3.375 gm/ Sodium Chloride IV 200 mls/hr Q6H RAMIREZ Administration Ibuprofen 400 mg 02/15/17 19:52 02/18/17 19:30 Motrin PO 400 mg Q4HR PRN Administration Pain 1 to 4 Magnesium Oxide 400 mg 02/19/17 21:00 02/19/17 20:19 Mag Ox PO 400 mg BID RAMIREZ Administration Polyethylene Glycol 17 gm 02/16/17 09:00 02/19/17 11:40 Miralax PO 17 gm DAILY RAMIREZ Administration Tamsulosin HCl 0.4 mg 02/16/17 09:00 02/19/17 11:26 Flomax PO 0.4 mg DAILY RAMIREZ Administration - Lab Result Fish Bone Diagrams: 02/18/17 18:34 02/18/17 18:34 - Additional Planning My Orders: My Active Orders 02/19/17 12:57 Initiate Line Care Protocol [RC] .protocol 02/19/17 16:00 Piperacillin/Tazobactam [Zosyn] 3.375 gm Sodium Chloride 0.9% Minibag [Normal Saline 0.9% Minibag] 100 ml IV Q6H 02/19/17 17:10 Initiate Line Care Protocol [RC] .protocol 02/19/17 18:48 LORazepam INJ [Ativan Inj] 0.5 mg IVP Q2HR PRN 02/19/17 21:00 Magnesium Oxide [Mag Ox] 400 mg PO BID 02/20/17 05:00 BMP - BASIC METABOLIC PANEL [CHEM] DAILYLAB MAGNESIUM [CHEM] DAILYLAB Subjective - Subjective Patient Reports: Cough, Other ((Pt thinks he is at "[place]")) Nursing Reports: Confused, Other (Witnessed aspiration of liquids thjis am) Objective Vital Signs: Vital Signs - 24 hr 02/18/17 02/19/17 02/19/17 23:58 08:00 08:45 Temperature 36.4 C L Heart Rate [ 75 59 L 59 L Brachial] Respiratory 16 18 24 Rate Blood Pressure 99/48 L 149/55 H [Right Brachial artery] O2 Saturation 97 96 82 L 02/19/17 02/19/17 08:46 16:00 Temperature 36.6 C Heart Rate [ 69 90 Brachial] Respiratory 35 H Rate Blood Pressure 144/58 H [Right Brachial artery] O2 Saturation 92 95 Oxygen O2 Source Room air I&O (Last 24 Hrs): Intake and Output Totals x24h 02/17/17 02/18/17 02/19/17 23:59 23:59 23:59 Intake Total 1580 1820 390 Output Total 450 150 Balance 1130 1670 390 General: Alert, Other (Oriented only to person) HEENT: Mucous membr. moist/pink Neck: Supple, No JVD Neuro: Disoriented, Focal Deficits Cardiovascular: Regular rate, No murmurs Abdomen: Soft Extremities: Other (1+ edema) - Results Results: Laboratory Results WBC 8.8 x10^3/uL (4.8-10.8) 02/18/17 18:34 RBC 3.49 10^6/uL (4.70-6.10) L 02/18/17 18:34 Hgb 11.7 g/dL (14.0-18.0) L 02/18/17 18:34 Hct 34.9 % (42.0-52.0) L 02/18/17 18:34 MCV 100.0 fL (80.0-94.0) H 02/18/17 18:34 MCH 33.5 pg (27.0-31.0) H 02/18/17 18:34 MCHC 33.5 g/dL (32.0-36.0) 02/18/17 18:34 RDW 13.9 % (12.0-15.0) 02/18/17 18:34 Plt Count 161 10^3/uL (130-450) 02/18/17 18:34 MPV 7.5 fL (7.4-11.4) 02/18/17 18:34 Neut # 6.0 10^3/uL (1.5-6.6) 02/18/17 18:34 Lymph # 1.3 10^3/uL (1.5-3.5) L 02/18/17 18:34 [place] # 1.4 10^3/uL (0.0-1.0) H 02/18/17 18:34 Eos # 0.0 10^3/uL (0.0-0.7) 02/18/17 18:34 Baso # 0.0 10^3/uL (0.0-0.1) 02/18/17 18:34 Absolute Nucleated RBC 0.00 x10^3/uL 02/18/17 18:34 Nucleated RBC % 0.0 /100WBC 02/18/17 18:34 Manual Slide Review Indicated 02/18/17 18:34 WBC Morphology 1+ HYPERSEG NEUT (NORMAL) 02/18/17 18:34 Platelet Estimate NORMAL (130-450,000) (NORMAL) 02/18/17 18:34 Platelet Morphology NORMAL APPEARANCE (NORMAL) 02/18/17 18:34 RBC Morph Micro Appear 1+ ANISOCYTOSIS (NORMAL) 02/18/17 18:34 VBG pH 7.450 (7.31-7.41) H 02/18/17 18:34 Ionized Calcium 1.07 mmol/L (1.15-1.33) L 02/18/17 18:34 Sodium 126 mmol/L (135-145) L 02/18/17 18:34 Potassium 4.2 mmol/L (3.5-5.0) 02/18/17 18:34 Chloride 91 mmol/L (101-111) L 02/18/17 18:34 Carbon Dioxide 23 mmol/L (21-32) 02/18/17 18:34 Anion Gap 12.0 (6-13) 02/18/17 18:34 BUN 13 mg/dL (6-20) 02/18/17 18:34 Creatinine 0.8 mg/dL (0.6-1.2) 02/18/17 18:34 Estimated GFR (MDRD) 91 (>89) 02/18/17 18:34 Glucose 142 mg/dL (70-100) H 02/18/17 18:34 Lactic Acid 1.0 mmol/L (0.5-2.2) 02/16/17 05:48 Calcium 8.3 mg/dL (8.5-10.3) L 02/18/17 18:34 Ionized Calcium YES 02/18/17 18:34 Phosphorus 2.6 mg/dL (2.5-4.6) 02/16/17 05:48 Magnesium 1.3 mg/dL (1.7-2.8) L 02/18/17 18:34 Total Bilirubin 0.7 mg/dL (0.2-1.0) 02/18/17 18:34 AST 31 IU/L (10-42) 02/18/17 18:34 ALT 27 IU/L (10-60) 02/18/17 18:34 Alkaline Phosphatase 161 IU/L (42-121) H 02/18/17 18:34 Total Creatine Kinase 161 IU/L (22-269) 02/17/17 05:17 Total Protein 6.4 g/dL (6.7-8.2) L 02/18/17 18:34 Albumin 2.6 g/dL (3.2-5.5) L 02/18/17 18:34 Globulin 3.8 g/dL (2.1-4.2) 02/18/17 18:34 Albumin/Globulin Ratio 0.7 (1.0-2.2) L 02/18/17 18:34 Lipase 17 U/L (22-51) L 02/15/17 17:03 TSH 3.47 uIU/mL (0.34-5.60) 02/15/17 17:03 Urine Color YELLOW 02/15/17 16:48 Urine Clarity CLEAR (CLEAR) 02/15/17 16:48 Urine pH 5.5 PH (5.0-7.5) 02/15/17 16:48 Ur Specific [place] <=1.005 (1.002-1.030) 02/15/17 16:48 Urine Protein NEGATIVE mg/dL (NEGATIVE) 02/15/17 16:48 Urine Glucose (UA) NEGATIVE mg/dL (NEGATIVE) 02/15/17 16:48 Urine Ketones NEGATIVE mg/dL (NEGATIVE) 02/15/17 16:48 Urine Occult Blood NEGATIVE (NEGATIVE) 02/15/17 16:48 Urine Nitrite NEGATIVE (NEGATIVE) 02/15/17 16:48 Urine Bilirubin NEGATIVE (NEGATIVE) 02/15/17 16:48 Urine Urobilinogen 0.2 (NORMAL) E.U./dL (NORMAL) 02/15/17 16:48 Ur Leukocyte Esterase NEGATIVE (NEGATIVE) 02/15/17 16:48 Ur Microscopic Review NOT INDICATED 02/15/17 16:48 Urine Culture Comments NOT INDICATED 02/15/17 16:48 Ethyl Alcohol < 5.0 mg/dL 02/15/17 17:03 - Procedures Procedures: Procedures REPLACEMENT OF LEFT LENS WITH SYNTH SUB, PERC APPROACH (07/22/16) REPLACEMENT OF RIGHT LENS WITH SYNTH SUB, PERC APPROACH (01/06/17)
[2017-02-20] MEDS: SODIUM CHLORIDE FLUSH 0.9% 10 ML SYRINGE IVP PRN ×3 (04:23→17:33)
[2017-02-20] MEDS: PIPERACILLIN/TAZOBACTAM 3.375 GM in SODIUM CHLORIDE 0.9% MINIBAG 100 ML IV SCH ×4 (04:24→21:18)
[2017-02-20 06:31] LABS: CALCIUM 8.4 mg/dL (8.5-10.3); CREATININE 0.8 mg/dL (0.6-1.2); MAGNESIUM 2.3 mg/dL (1.7-2.8); POTASSIUM 3.9 mmol/L (3.5-5.0)
[2017-02-20] MEDS ORDERED: SODIUM CHLORIDE 0.9% 100ML 100 ML IV ONE (10:46)
[2017-02-20] MEDS: SODIUM CHLORIDE FLUSH 0.9% 10 ML SYRINGE IVP SCH ×3 (10:54→21:25)
[2017-02-20] MEDS: POLYETHYLENE GLYCOL 3350 17 GM PACKET PO SCH (10:55)
[2017-02-20] MEDS: FAMOTIDINE 20 MG TABLET PO SCH (11:35)
[2017-02-20] MEDS: ASPIRIN CHEW 81 MG TABLET PO SCH (11:35)
[2017-02-20] MEDS: HYDROcod/ACETAM 5/325 MG TABLET PO PRN ×2 (11:36→21:17)
[2017-02-20] MEDS: MAGNESIUM OXIDE 400 MG TABLET PO SCH ×2 (11:36→21:18)
[2017-02-20] MEDS: ENOXAPARIN 40 MG/0.4 ML SYRINGE SUBQ SCH (11:37)
[2017-02-20] MEDS: TAMSULOSIN 0.4 MG CAPSULE PO SCH (11:39)
[2017-02-20] MEDS ORDERED: MIN OIL/DIMETHICON/COCONUT OIL 92 GM TUBE TOP PRN (13:43)
--- NOTE | 2017-02-20 16:44 | PROVIDER PROGRESS NOTE ---
Assessment/Plan - Problem List (1) CAP (community acquired pneumonia) Qualifiers: Laterality: right Assessment/Plan: I suspect pleuritic pain is due to RLL pneumonia Continue iv antibiotics. (2) Generalized weakness Assessment/Plan: Pt able to walk with quad walker to BR. Continue PT (3) Fall from slip, trip, or stumble Qualifiers: Encounter type: subsequent encounter Qualified Code(s): W01.0XXD - Fall on same level from slipping, tripping and stumbling without subsequent striking against object, subsequent encounter (4) Rhabdomyolysis Qualifiers: Rhabdomyolysis type: non-traumatic Qualified Code(s): M62.82 - Rhabdomyolysis (5) Hypertension Qualifiers: Hypertension type: essential hypertension Qualified Code(s): I10 - Essential (primary) hypertension - Current Meds Current Meds: Current Medications Generic Name Dose Route Start Last Admin Trade Name Freq PRN Reason Stop Dose Admin Acetaminophen/Hydrocodone Bitart 1 tab 02/15/17 21:59 02/20/17 11:36 [place] 5/325 PO 1 tab Q4HR PRN Administration PAIN Aspirin 81 mg 02/16/17 09:00 02/20/17 11:35 [place] Aspirin PO 81 mg DAILY RAMIREZ Administration Enoxaparin Sodium 40 mg 02/16/17 09:00 02/20/17 11:37 Lovenox SUBQ 40 mg DAILY RAMIREZ Administration Famotidine 20 mg 02/16/17 09:00 02/20/17 11:35 Pepcid PO 20 mg DAILY RAMIREZ Administration Piperacillin Sod/Tazobactam 100 mls @ 200 mls/hr 02/19/17 16:00 02/20/17 11: 30 Sod 3.375 gm/ Sodium Chloride IV Infused Q6H RAMIREZ Infusion Ibuprofen 400 mg 02/15/17 19:52 02/18/17 19:30 Motrin PO 400 mg Q4HR PRN Administration Pain 1 to 4 Magnesium Oxide 400 mg 02/19/17 21:00 02/20/17 11:36 Mag Ox PO 400 mg BID RAMIREZ Administration Polyethylene Glycol 17 gm 02/16/17 09:00 02/20/17 10:55 Miralax PO Not Given DAILY RAMIREZ Sodium Chloride 10 ml 02/20/17 06:00 02/20/17 10:54 Normal Saline Flush 0.9% IVP 10 ml Q8HR RAMIREZ Administration Sodium Chloride 10 ml 02/20/17 01:13 02/20/17 11:32 Normal Saline Flush 0.9% IVP 10 ml PRN PRN Administration NEEDED PER PROVIDER ORDERS Tamsulosin HCl 0.4 mg 02/16/17 09:00 02/20/17 11:39 Flomax PO 0.4 mg DAILY RAMIREZ Administration - Lab Result Fish Bone Diagrams: 02/18/17 18:34 02/20/17 05:51 - Additional Planning My Orders: My Active Orders 02/19/17 16:00 Piperacillin/Tazobactam [Zosyn] 3.375 gm Sodium Chloride 0.9% Minibag [Normal Saline 0.9% Minibag] 100 ml IV Q6H 02/19/17 17:10 Initiate Line Care Protocol [RC] .protocol 02/19/17 18:48 LORazepam INJ [Ativan Inj] 0.5 mg IVP Q2HR PRN 02/19/17 21:00 Magnesium Oxide [Mag Ox] 400 mg PO BID 02/20/17 01:13 Sodium Chloride Flush 0.9% [Normal Saline Flush 0.9%] 10 ml IVP PRN PRN 02/20/17 06:00 Sodium Chloride Flush 0.9% [Normal Saline Flush 0.9%] 10 ml IVP Q8HR 02/20/17 13:43 Min Oil/Dimeth/Coconut Oil Crm [Cavilon] 1 applic TOP PRN PRN 02/20/17 Breakfast Dysphagia Puree Diet [DIET] Subjective - Subjective Patient Reports: Resting Comfortably Nursing Reports: Other (Pt was awake all night and didn't fall asleep til 5 am. When Pt awoke, he c/o right lower ribcage pleuritic pain.) Objective Vital Signs: Vital Signs - 24 hr 02/20/17 02/20/17 02/20/17 00:00 08:00 15:24 Temperature 37.7 C H 36.3 C L 36.3 C L Heart Rate [ 94 63 59 L Brachial] Respiratory 19 18 18 Rate Blood Pressure 134/57 H [Left Brachial artery] Blood Pressure 110/56 L 128/58 L [Right Brachial artery] O2 Saturation 95 96 97 Oxygen O2 Source Room air I&O (Last 24 Hrs): Intake and Output Totals x24h 0902/19/17 02/20/17 23:59 23:59 23:59 Intake Total 1820 690 400 Output Total 150 Balance 1100 690 400 General: No acute distress HEENT: Mucous membr. moist/pink Neck: Supple Cardiovascular: Regular rate Respiratory: No respiratory distress Extremities: Other (Unchanged 1+ edema) - Results Results: Laboratory Results WBC 8.8 x10^3/uL (4.8-10.8) 02/18/17 18:34 RBC 3.49 10^6/uL (4.70-6.10) L 02/18/17 18:34 Hgb 11.7 g/dL (14.0-18.0) L 02/18/17 18:34 Hct 34.9 % (42.0-52.0) L 02/18/17 18:34 MCV 100.0 fL (80.0-94.0) H 02/18/17 18:34 MCH 33.5 pg (27.0-31.0) H 02/18/17 18:34 MCHC 33.5 g/dL (32.0-36.0) 02/18/17 18:34 RDW 13.9 % (12.0-15.0) 02/18/17 18:34 Plt Count 161 10^3/uL (130-450) 02/18/17 18:34 MPV 7.5 fL (7.4-11.4) 02/18/17 18:34 Neut # 6.0 10^3/uL (1.5-6.6) 02/18/17 18:34 Lymph # 1.3 10^3/uL (1.5-3.5) L 02/18/17 18:34 [place] # 1.4 10^3/uL (0.0-1.0) H 02/18/17 18:34 Eos # 0.0 10^3/uL (0.0-0.7) 02/18/17 18:34 Baso # 0.0 10^3/uL (0.0-0.1) 02/18/17 18:34 Absolute Nucleated RBC 0.00 x10^3/uL 02/18/17 18:34 Nucleated RBC % 0.0 /100WBC 02/18/17 18:34 Manual Slide Review Indicated 02/18/17 18:34 WBC Morphology 1+ HYPERSEG NEUT (NORMAL) 02/18/17 18:34 Platelet Estimate NORMAL (130-450,000) (NORMAL) 02/18/17 18:34 Platelet Morphology NORMAL APPEARANCE (NORMAL) 02/18/17 18:34 RBC Morph Micro Appear 1+ ANISOCYTOSIS (NORMAL) 02/18/17 18:34 VBG pH 7.450 (7.31-7.41) H 02/18/17 18:34 Ionized Calcium 1.07 mmol/L (1.15-1.33) L 02/18/17 18:34 Sodium 135 mmol/L (135-145) 02/20/17 05:51 Potassium 3.9 mmol/L (3.5-5.0) 02/20/17 05:51 Chloride 98 mmol/L (101-111) L 02/20/17 05:51 Carbon Dioxide 27 mmol/L (21-32) 02/20/17 05:51 Anion Gap 10.0 (6-13) 02/20/17 05:51 BUN 15 mg/dL (6-20) 02/20/17 05:51 Creatinine 0.8 mg/dL (0.6-1.2) 02/20/17 05:51 Estimated GFR (MDRD) 91 (>89) 02/20/17 05:51 Glucose 123 mg/dL (70-100) H 02/20/17 05:51 Lactic Acid 1.0 mmol/L (0.5-2.2) 02/16/17 05:48 Calcium 8.4 mg/dL (8.5-10.3) L 02/20/17 05:51 Ionized Calcium YES 02/18/17 18:34 Phosphorus 2.6 mg/dL (2.5-4.6) 02/16/17 05:48 Magnesium 2.3 mg/dL (1.7-2.8) 02/20/17 05:51 Total Bilirubin 0.7 mg/dL (0.2-1.0) 02/18/17 18:34 AST 31 IU/L (10-42) 02/18/17 18:34 ALT 27 IU/L (10-60) 02/18/17 18:34 Alkaline Phosphatase 161 IU/L (42-121) H 02/18/17 18:34 Total Creatine Kinase 161 IU/L (22-269) 02/17/17 05:17 Total Protein 6.4 g/dL (6.7-8.2) L 02/18/17 18:34 Albumin 2.6 g/dL (3.2-5.5) L 02/18/17 18:34 Globulin 3.8 g/dL (2.1-4.2) 02/18/17 18:34 Albumin/Globulin Ratio 0.7 (1.0-2.2) L 02/18/17 18:34 Lipase 17 U/L (22-51) L 02/15/17 17:03 TSH 3.47 uIU/mL (0.34-5.60) 02/15/17 17:03 Urine Color YELLOW 02/15/17 16:48 Urine Clarity CLEAR (CLEAR) 02/15/17 16:48 Urine pH 5.5 PH (5.0-7.5) 02/15/17 16:48 Ur Specific [place] <=1.005 (1.002-1.030) 02/15/17 16:48 Urine Protein NEGATIVE mg/dL (NEGATIVE) 02/15/17 16:48 Urine Glucose (UA) NEGATIVE mg/dL (NEGATIVE) 02/15/17 16:48 Urine Ketones NEGATIVE mg/dL (NEGATIVE) 02/15/17 16:48 Urine Occult Blood NEGATIVE (NEGATIVE) 02/15/17 16:48 Urine Nitrite NEGATIVE (NEGATIVE) 02/15/17 16:48 Urine Bilirubin NEGATIVE (NEGATIVE) 02/15/17 16:48 Urine Urobilinogen 0.2 (NORMAL) E.U./dL (NORMAL) 02/15/17 16:48 Ur Leukocyte Esterase NEGATIVE (NEGATIVE) 02/15/17 16:48 Ur Microscopic Review NOT INDICATED 02/15/17 16:48 Urine Culture Comments NOT INDICATED 02/15/17 16:48 Ethyl Alcohol < 5.0 mg/dL 02/15/17 17:03 - Procedures Procedures: Procedures REPLACEMENT OF LEFT LENS WITH SYNTH SUB, PERC APPROACH (07/22/16) REPLACEMENT OF RIGHT LENS WITH SYNTH SUB, PERC APPROACH (01/06/17)
[2017-02-20] MEDS: GABAPENTIN 300 MG CAPSULE PO SCH (21:17)
[2017-02-21] MEDS: PIPERACILLIN/TAZOBACTAM 3.375 GM in SODIUM CHLORIDE 0.9% MINIBAG 100 ML IV SCH ×4 (03:29→21:07)
[2017-02-21] MEDS: SODIUM CHLORIDE FLUSH 0.9% 10 ML SYRINGE IVP PRN ×2 (03:30→04:15)
[2017-02-21] MEDS: SODIUM CHLORIDE FLUSH 0.9% 10 ML SYRINGE IVP SCH ×3 (05:19→19:38)
[2017-02-21] MEDS: POLYETHYLENE GLYCOL 3350 17 GM PACKET PO SCH (08:11)
[2017-02-21] MEDS: FAMOTIDINE 20 MG TABLET PO SCH (09:40)
[2017-02-21] MEDS: TAMSULOSIN 0.4 MG CAPSULE PO SCH (09:40)
[2017-02-21] MEDS: MAGNESIUM OXIDE 400 MG TABLET PO SCH ×2 (09:40→19:37)
[2017-02-21] MEDS: ENOXAPARIN 40 MG/0.4 ML SYRINGE SUBQ SCH (09:40)
[2017-02-21] MEDS: ASPIRIN CHEW 81 MG TABLET PO SCH (09:40)
[2017-02-21] MEDS: GABAPENTIN 300 MG CAPSULE PO SCH ×2 (09:40→19:37)
--- NOTE | 2017-02-21 14:00 | Discharge Plan ---
Discharge Plan Disposition: 03 [facility] DC/Xfer Condition: Fair Prescriptions: Gabapentin [Neurontin] 300 mg PO BID #60 capsule Magnesium Oxide [Mag Ox] 400 mg PO BID #60 tablet Dticdtwqzact-Itep-Dayshcgm,Iso [Zosyn 3.375 gm/50 ml Galaxy] 3.375 gm IV BID # 20 [id number] Diet: Soft (Pureed diet Liquids must be nectar thick consistency) Activity Restrictions: Activity as Tolerated Shower Restrictions: Yes (Assistance needed) Driving Restrictions: Yes (No driving) Assistance Devices: Wheelchair, Walker Weight Bearing: Full Weight No Smoking: If you smoke, Please STOP! Call for help.
[2017-02-21] MEDS: LORazepam 2 MG/ML SYRINGE IVP PRN ×2 (15:42→18:24)
--- NOTE | 2017-02-21 17:06 | PROVIDER PROGRESS NOTE ---
Assessment/Plan - Problem List (1) CAP (community acquired pneumonia) Qualifiers: Laterality: right Assessment/Plan: Aspiration pneumonia. Pt has improved since back on iv antibiotics If a SNF accepts a peripheral iv, he could finish iv antibiotics (10 more days of Zosyn 337 iv bid), otherwise continue present plan. Diet must be pureed and liquids must be nectar thick (2) Generalized weakness Assessment/Plan: Improved and using quad walker, working with PT (3) Fall from slip, trip, or stumble Qualifiers: Encounter type: subsequent encounter Qualified Code(s): W01.0XXD - Fall on same level from slipping, tripping and stumbling without subsequent striking against object, subsequent encounter (4) Rhabdomyolysis Qualifiers: Rhabdomyolysis type: non-traumatic Qualified Code(s): M62.82 - Rhabdomyolysis Assessment/Plan: Resolved (5) Hypertension Qualifiers: Hypertension type: essential hypertension Qualified Code(s): I10 - Essential (primary) hypertension Assessment/Plan: Stable - Current Meds Current Meds: Current Medications Generic Name Dose Route Start Last Admin Trade Name Freq PRN Reason Stop Dose Admin Acetaminophen/Hydrocodone Bitart 1 tab 02/15/17 21:59 02/20/17 21:17 [place] 5/325 PO 1 tab Q4HR PRN Administration PAIN Aspirin 81 mg 02/16/17 09:00 02/21/17 09:40 [facility] [place] Aspirin PO 81 mg DAILY RAMIREZ Administration Enoxaparin Sodium 40 mg 02/16/17 09:00 02/21/17 09:40 Lovenox SUBQ 40 mg DAILY RAMIREZ Administration Famotidine 20 mg 02/16/17 09:00 02/21/17 09:40 Pepcid PO 20 mg DAILY RAMIREZ Administration Gabapentin 300 mg 02/20/17 21:00 02/21/17 09:40 Neurontin PO 300 mg BID RAMIREZ Administration Piperacillin Sod/Tazobactam 100 mls @ 200 mls/hr 02/19/17 16:00 02/21/17 16: 00 Sod 3.375 gm/ Sodium Chloride IV Not Given Q6H RAMIREZ Ibuprofen 400 mg 02/15/17 19:52 02/18/17 19:30 Motrin PO 400 mg Q4HR PRN Administration Pain 1 to 4 Lorazepam 0.5 mg 02/19/17 18:48 02/21/17 15:42 Ativan Inj IVP 0.5 mg Q2HR PRN Administration Anxiety Magnesium Oxide 400 mg 02/19/17 21:00 02/21/17 09:40 Mag Ox PO 400 mg BID RAMIREZ Administration Polyethylene Glycol 17 gm 02/16/17 09:00 02/21/17 08:11 Miralax PO Not Given DAILY RAMIREZ Sodium Chloride 10 ml 02/20/17 06:00 02/21/17 11:22 Normal Saline Flush 0.9% IVP 10 ml Q8HR RAMIREZ Administration Sodium Chloride 10 ml 02/20/17 01:13 02/21/17 04:15 Normal Saline Flush 0.9% IVP 10 ml PRN PRN Administration NEEDED PER PROVIDER ORDERS Tamsulosin HCl 0.4 mg 02/16/17 09:00 02/21/17 09:40 Flomax PO 0.4 mg DAILY RAMIREZ Administration - Lab Result Fish Bone Diagrams: 02/18/17 18:34 02/20/17 05:51 Subjective - Subjective Patient Reports: Feeling Better, Resting Comfortably Nursing Reports: Other (No longer confused Pt is cooperative, agrees to go to SNF) Objective Vital Signs: Vital Signs - 24 hr 02/21/17 02/21/17 02/21/17 00:00 07:49 15:03 Temperature 37.2 C 36.7 C 36.3 C L Heart Rate [ 86 63 65 Brachial] Respiratory 18 16 18 Rate Blood Pressure 145/66 H [Left Brachial artery] Blood Pressure 100/69 124/58 L [Right Brachial artery] O2 Saturation 97 95 100 02/21/17 15:30 Temperature 36.2 C L Heart Rate [ 64 Brachial] Respiratory 20 Rate Blood Pressure [Left Brachial artery] Blood Pressure 145/61 H [Right Brachial artery] O2 Saturation 99 Oxygen O2 Source Room air I&O (Last 24 Hrs): Intake and Output Totals x24h 02/19/17 02/20/17 02/21/17 23:59 23:59 23:59 Intake Total 690 1220.000 990 Output Total 280 200 Balance 690 940.000 790 General: Alert HEENT: Mucous membr. moist/pink Neck: Supple Neuro: Alert, Oriented Times 3 Cardiovascular: Regular rate Respiratory: No respiratory distress Abdomen: Soft Extremities: No edema - Results Results: Laboratory Results WBC 8.8 x10^3/uL (4.8-10.8) 02/18/17 18:34 RBC 3.49 10^6/uL (4.70-6.10) L 02/18/17 18:34 Hgb 11.7 g/dL (14.0-18.0) L 02/18/17 18:34 Hct 34.9 % (42.0-52.0) L 02/18/17 18:34 MCV 100.0 fL (80.0-94.0) H 02/18/17 18:34 MCH 33.5 pg (27.0-31.0) H 02/18/17 18:34 MCHC 33.5 g/dL (32.0-36.0) 02/18/17 18:34 RDW 13.9 % (12.0-15.0) 02/18/17 18:34 Plt Count 161 10^3/uL (130-450) 02/18/17 18:34 MPV 7.5 fL (7.4-11.4) 02/18/17 18:34 Neut # 6.0 10^3/uL (1.5-6.6) 02/18/17 18:34 Lymph # 1.3 10^3/uL (1.5-3.5) L 02/18/17 18:34 [place] # 1.4 10^3/uL (0.0-1.0) H 02/18/17 18:34 Eos # 0.0 10^3/uL (0.0-0.7) 02/18/17 18:34 Baso # 0.0 10^3/uL (0.0-0.1) 02/18/17 18:34 Absolute Nucleated RBC 0.00 x10^3/uL 02/18/17 18:34 Nucleated RBC % 0.0 /100WBC 02/18/17 18:34 Manual Slide Review Indicated 02/18/17 18:34 WBC Morphology 1+ HYPERSEG NEUT (NORMAL) 02/18/17 18:34 Platelet Estimate NORMAL (130-450,000) (NORMAL) 02/18/17 18:34 Platelet Morphology NORMAL APPEARANCE (NORMAL) 02/18/17 18:34 RBC Morph Micro Appear 1+ ANISOCYTOSIS (NORMAL) 02/18/17 18:34 VBG pH 7.450 (7.31-7.41) H 02/18/17 18:34 Ionized Calcium 1.07 mmol/L (1.15-1.33) L 02/18/17 18:34 Sodium 135 mmol/L (135-145) 02/20/17 05:51 Potassium 3.9 mmol/L (3.5-5.0) 02/20/17 05:51 Chloride 98 mmol/L (101-111) L 02/20/17 05:51 Carbon Dioxide 27 mmol/L (21-32) 02/20/17 05:51 Anion Gap 10.0 (6-13) 02/20/17 05:51 BUN 15 mg/dL (6-20) 02/20/17 05:51 Creatinine 0.8 mg/dL (0.6-1.2) 02/20/17 05:51 Estimated GFR (MDRD) 91 (>89) 02/20/17 05:51 Glucose 123 mg/dL (70-100) H 02/20/17 05:51 Lactic Acid 1.0 mmol/L (0.5-2.2) 02/16/17 05:48 Calcium 8.4 mg/dL (8.5-10.3) L 02/20/17 05:51 Ionized Calcium YES 02/18/17 18:34 Phosphorus 2.6 mg/dL (2.5-4.6) 02/16/17 05:48 Magnesium 2.3 mg/dL (1.7-2.8) 02/20/17 05:51 Total Bilirubin 0.7 mg/dL (0.2-1.0) 02/18/17 18:34 AST 31 IU/L (10-42) 02/18/17 18:34 ALT 27 IU/L (10-60) 02/18/17 18:34 Alkaline Phosphatase 161 IU/L (42-121) H 02/18/17 18:34 Total Creatine Kinase 161 IU/L (22-269) 02/17/17 05:17 Total Protein 6.4 g/dL (6.7-8.2) L 02/18/17 18:34 Albumin 2.6 g/dL (3.2-5.5) L 02/18/17 18:34 Globulin 3.8 g/dL (2.1-4.2) 02/18/17 18:34 Albumin/Globulin Ratio 0.7 (1.0-2.2) L 02/18/17 18:34 Lipase 17 U/L (22-51) L 02/15/17 17:03 TSH 3.47 uIU/mL (0.34-5.60) 02/15/17 17:03 Urine Color YELLOW 02/15/17 16:48 Urine Clarity CLEAR (CLEAR) 02/15/17 16:48 Urine pH 5.5 PH (5.0-7.5) 02/15/17 16:48 Ur Specific [place] <=1.005 (1.002-1.030) 02/15/17 16:48 Urine Protein NEGATIVE mg/dL (NEGATIVE) 02/15/17 16:48 Urine Glucose (UA) NEGATIVE mg/dL (NEGATIVE) 02/15/17 16:48 Urine Ketones NEGATIVE mg/dL (NEGATIVE) 02/15/17 16:48 Urine Occult Blood NEGATIVE (NEGATIVE) 02/15/17 16:48 Urine Nitrite NEGATIVE (NEGATIVE) 02/15/17 16:48 Urine Bilirubin NEGATIVE (NEGATIVE) 02/15/17 16:48 Urine Urobilinogen 0.2 (NORMAL) E.U./dL (NORMAL) 02/15/17 16:48 Ur Leukocyte Esterase NEGATIVE (NEGATIVE) 02/15/17 16:48 Ur Microscopic Review NOT INDICATED 02/15/17 16:48 Urine Culture Comments NOT INDICATED 02/15/17 16:48 Ethyl Alcohol < 5.0 mg/dL 02/15/17 17:03 - Procedures Procedures: Procedures REPLACEMENT OF LEFT LENS WITH SYNTH SUB, PERC APPROACH (07/22/16) REPLACEMENT OF RIGHT LENS WITH SYNTH SUB, PERC APPROACH (01/06/17)
[2017-02-22] MEDS: LORazepam 2 MG/ML SYRINGE IVP PRN (03:31)
[2017-02-22] MEDS: SODIUM CHLORIDE FLUSH 0.9% 10 ML SYRINGE IVP SCH ×2 (03:31→09:50)
[2017-02-22] MEDS: PIPERACILLIN/TAZOBACTAM 3.375 GM in SODIUM CHLORIDE 0.9% MINIBAG 100 ML IV SCH ×2 (03:32→09:50)
[2017-02-22 08:05] VITALS: BP 159/59
[2017-02-22] MEDS: ASPIRIN CHEW 81 MG TABLET PO SCH (09:19)
[2017-02-22] MEDS: HYDROcod/ACETAM 5/325 MG TABLET PO PRN ×2 (09:19→13:33)
[2017-02-22] MEDS: GABAPENTIN 300 MG CAPSULE PO SCH (09:19)
[2017-02-22] MEDS: FAMOTIDINE 20 MG TABLET PO SCH (09:19)
[2017-02-22] MEDS: POLYETHYLENE GLYCOL 3350 17 GM PACKET PO SCH (09:19)
[2017-02-22] MEDS: MAGNESIUM OXIDE 400 MG TABLET PO SCH (09:19)
[2017-02-22] MEDS: TAMSULOSIN 0.4 MG CAPSULE PO SCH (09:19)
[2017-02-22] MEDS: ENOXAPARIN 40 MG/0.4 ML SYRINGE SUBQ SCH (09:21)
--- NOTE | 2017-02-22 13:53 | DISCHARGE SUMMARY ---
Discharge Summary Admit Date: 02/15/17 Discharge Date: 02/22/17 Discharging Provider: Andrew Aceves MD Primary Care Provider: [place] Hospital Code Status: Do Not Attempt Resuscitation Condition at Discharge: Fair Discharge Disposition: 03 SNF DC/Xfer - DIAGNOSES Admission Diagnoses: 1. Community acquired pneumonia 2. Hyponatremia 3. Generalized weakness 4. Rhabdomyolysis 5. Hypomagnesemia 6. Hypertension 7. Hyperlipidemia 8. Prophylactic use of low molecular weight heparin for venous thromboembolism Discharge Diagnoses with Status of Each Condition: 1. Community-acquired pneumonia resolving 2. Generalized weaknessimproving 3. Rhabdomyolysisresolved 4. Deliriumresolved 5. Hypertensionstable 6. Fallstable 7. Hyponatremiaresolved 8. Hypomagnesemiaresolved 9. Hyperlipidemiastable - HPI History of Present Illness: Patient is an 86-year-old gentleman with a past medical history significant for hypertension, prostate cancer status post prostatectomy in remission, hyperlipidemia, osteoarthritis and GERD who presented to the emergency department with a chief complaint of generalized weakness. The patient states that he was in his normal state of health until this past week when he states he has been having frequent falls. He states that over the last 3 days he is fallen 3 times the previous 2 times he was able to get himself up or get up with assistance. He states that last night he had just gotten out of the shower and was going back to his bed when he slipped and fell to the floor. He states that he was unable to get up from the floor and his Lifeline was out of reach therefore he was not able to get to his Lifeline. The patient states that he laid on the floor through out the night and then into the day until home health arrived at his home and noticed him on the floor. At that point EMS was called and the patient was brought into the emergency department. The patient states that he has had frequent falls over the last 6 months and recently had a fall a month ago after which he had severe pain in the left lateral chest and posterior chest. The patient states that he saw his primary care physician for this pain and was found to have rib fractures. The patient has since been using Tylenol 3 to manage this pain. He states that he continues to have pain in that left side. The patient also states that for the past few days he is also noted that he has a sore throat and has been coughing. He states that he does get coughing spells when he drinks coffee. The patient states that last night he was too weak to get himself up from the floor. The patient otherwise denies any fevers or chills. The patient denies any headache, blurred vision, runny nose, chest pain, orthopnea, PND, he states that he easily gets fatigued when exerting himself but denies any shortness of breath at rest, abdominal pain, nausea, diarrhea, urinary urgency, urinary frequency, dysuria, joint swelling, he does admit to bilateral knee pain from arthritis, he denies any neck stiffness, back pain, or neurologic deficits. On presentation to the emergency department the patient was afebrile, he was mildly hypotensive with a blood pressure of 104/44 but otherwise was not in any respiratory distress and was not hypoxic. The patient underwent routine lab work including a CBC which revealed the patient had a WBC count of 15.6. The patient's chemistry showed that he was hyponatremic with a sodium of 122, hypochloremic with a chloride of 188, hypomagnesemic with a magnesium of 1.6 and had an elevated CPK. The patient's urine analysis was negative. The patient's chest x-ray showed new airspace disease in the right lung and given his elevated white blood cell count, cough and generalized weakness this was thought likely to be a pneumonia. The patient was admitted to the [facility] for pneumonia and dehydration. - HOSPITAL COURSE Hospital Course: The patient presented with community acquired pneumonia and generalized weakness. The patient initially had some improvement with IV antibiotics but then had worsening with increasing delirium and confusion. The patients Chest x -ray showed worsening pneumonia and patient was placed on IV Zosyn and swallow study showed the patient was having silent aspiration. The patient once again improved however he was too weak to return home and was discharged to [facility] for further physical therapy, Occupational Therapy and speech therapy. The patient's rhabdomyolysis resolved with IV fluids. The patient was discharged to intermediate facility with p.o. Levaquin and clindamycin which she will continue for 7 more days. Patient was otherwise discharged in stable condition. (1) CAP (community acquired pneumonia) Qualifiers: Laterality: right Assessment/Plan: Patient likely had aspiration pneumonia. Pt worsened during hospitalizaton with delirium and worsening chest x-ray and then had to be placed on IV zosyn with which he improved improved Patient discharged to [facility] on PO antibiotics with Levaquin and Clindamycin for 7 additional days Diet changed to pureed and nectar thick liquids (2) Generalized weakness Assessment/Plan: Improved and using quad walker Too weak to return home and was discharged to SNF for further PT (3) Delirium Assessment/Plan: Patient had several days of delirium requiring sedatives at night found to have worsening pneumonia and abx were switched to PO and patient had improvement in delirium as well as infection Patient stable and discharged to SNF (4) Rhabdomyolysis Qualifiers: Rhabdomyolysis type: non-traumatic Qualified Code(s): M62.82 - Rhabdomyolysis Assessment/Plan: Resolved with IV fluids (5) Hypertension Qualifiers: Hypertension type: essential hypertension Qualified Code(s): I10 - Essential (primary) hypertension Assessment/Plan: Stable - ALLERGIES Allergies/Adverse Reactions: Allergies Allergy/AdvReac Type Severity Reaction Status Date / Time No Known Drug Allergies Allergy Verified 07/20/15 14:47 - MEDICATIONS Home Medications: Ambulatory Orders Medication Instructions Recorded Confirmed Simvastatin 40 mg PO DAILY 07/22/16 02/15/17 Tamsulosin [Flomax] 0.4 mg PO DAILY 07/22/16 02/15/17 Aspirin 81 mg PO DAILY 02/15/17 02/15/17 Omeprazole [PriLOSEC] 20 mg PO DAILY 02/15/17 02/15/17 Latanoprost 1 drops EACHEYE DAILY PM 02/16/17 02/16/17 Lisinopril 20 mg PO DAILY 02/16/17 02/16/17 Travoprost 0.004% Ophth Drops 1 drops EACHEYE DAILY PM 02/16/17 02/16/17 [Travatan Z] hydroCHLOROthiazide [Hydrodiuril] 12.5 mg PO DAILY 02/16/17 02/16/17 Aspirin Chewable [[place] 81 mg PO DAILY #0 tablet 02/21/17 Aspirin] Gabapentin [Neurontin] 300 mg PO BID #60 capsule 02/21/17 Magnesium Oxide [Mag Ox] 400 mg PO BID #60 tablet 02/21/17 Myjoxbvugvkw-Inyw-Jyqmuzcq,Iso 3.375 gm IV BID #20 froz.piggy 02/21/17 [Zosyn 3.375 gm/50 ml Galaxy] - PHYSICAL EXAM AT DISCHARGE General Appearance: positive: No acute distress, Alert, Other (confused ) Eyes Bilateral: positive: Normal inspection, PERRL, EOMI, No lid inflammation, Conjunctivae nml, No scleral icterus ENT: positive: ENT inspection nml, Pharynx nml, No signs of dehydration. negative: Purulent nasal drainage, Pharyngeal erythema, Oral lesions Neck: positive: Nml inspection, Thyroid nml, No JVD, Trachea midline. negative : Thyromegaly, Lymphadenopathy (R), Lymphadenopathy (L), Carotid bruit, Tracheal deviation Respiratory: positive: Chest non-tender, No respiratory distress, Rhonchi ( Improved). negative: Wheezes, Rales Cardiovascular: positive: Regular rate & rhythm, No murmur, No gallop Peripheral Pulses: positive: 2+ Abdomen: positive: Non-tender, No organomegaly, Nml bowel sounds, No distention. negative: Guarding, Rebound, Hepatomegaly Back: positive: Nml inspection. negative: CVA tenderness (R), CVA tenderness (L ) Skin: positive: Color nml, No rash, Warm. negative: Cyanosis, Pallor Extremities: positive: Non-tender, Full ROM, Nml appearance, No pedal edema Neurologic/Psychiatric: positive: CN's nml (2-12), Motor nml, Sensation nml, Mood/affect nml, Disoriented to time - LABS Result Diagrams: 02/18/17 18:34 02/20/17 05:51 Other Lab Results: Laboratory Tests 02/15/17 02/15/17 02/15/17 16:48 17:03 17:03 WBC 15.6 H RBC 3.50 L Hgb 11.8 L Hct 34.9 L MCV 99.7 H MCH 33.7 H MCHC 33.8 RDW 13.8 Plt Count 148 MPV 8.6 Neut # 13.0 H Lymph # 1.6 Walsh # 1.0 Eos # 0.1 Baso # 0.0 Absolute Nucleated RBC 0.00 Nucleated RBC % 0.0 Manual Slide Review WBC Morphology Platelet Estimate Platelet Morphology RBC Morph Micro Appear VBG pH Ionized Calcium Sodium 122 L Potassium 4.2 Chloride 88 L Carbon Dioxide 26 Anion Gap 8.0 BUN 21 H Creatinine 1.1 Estimated GFR (MDRD) 63 L Glucose 126 H Lactic Acid Calcium 8.4 L Phosphorus Magnesium 1.6 L Total Bilirubin 1.1 H AST 90 H ALT 30 Alkaline Phosphatase 143 H Total Creatine Kinase 861 H Total Protein 5.9 L Albumin 2.7 L Globulin 3.2 Albumin/Globulin Ratio 0.8 L Lipase 17 L TSH Urine Color YELLOW Urine Clarity CLEAR Urine pH 5.5 Ur Specific [place] <=1.005 Urine Protein NEGATIVE Urine Glucose (UA) NEGATIVE Urine Ketones NEGATIVE Urine Occult Blood NEGATIVE Urine Nitrite NEGATIVE Urine Bilirubin NEGATIVE Urine Urobilinogen 0.2 (NORMAL) Ur Leukocyte Esterase NEGATIVE Ur Microscopic Review NOT INDICATED Urine Culture Comments NOT INDICATED Ethyl Alcohol < 5.0 02/15/17 02/16/17 02/16/17 17:03 05:48 05:48 WBC RBC Hgb Hct MCV MCH MCHC RDW Plt Count MPV Neut # Lymph # [place] # Eos # Baso # Absolute Nucleated RBC Nucleated RBC % Manual Slide Review WBC Morphology Platelet Estimate Platelet Morphology RBC Morph Micro Appear VBG pH Ionized Calcium Sodium 132 L Potassium 3.8 Chloride 98 L Carbon Dioxide 25 Anion Gap 9.0 BUN 17 Creatinine 1.0 Estimated GFR (MDRD) 71 L Glucose 118 H Lactic Acid 1.0 Calcium 8.2 L Phosphorus 2.6 Magnesium 1.9 Total Bilirubin 0.6 AST 45 H ALT 24 Alkaline Phosphatase 125 H Total Creatine Kinase 413 H Total Protein 5.6 L Albumin 2.4 L Globulin 3.2 Albumin/Globulin Ratio 0.8 L Lipase TSH 3.47 Urine Color Urine Clarity Urine pH Ur Specific [place] Urine Protein Urine Glucose (UA) Urine Ketones Urine Occult Blood Urine Nitrite Urine Bilirubin Urine Urobilinogen Ur Leukocyte Esterase Ur Microscopic Review Urine Culture Comments Ethyl Alcohol 02/16/17 02/17/17 02/17/17 05:48 05:17 05:17 WBC 10.2 7.8 RBC 3.37 L 3.00 L Hgb 11.5 L 10.2 L Hct 33.8 L 30.4 L MCV 100.1 H 101.3 H MCH 34.0 H 33.9 H MCHC 34.0 33.5 RDW 14.0 13.9 Plt Count 133 128 L MPV 8.2 8.3 Neut # 8.2 H 5.6 Lymph # 1.3 L 1.1 L Walsh # 0.6 0.9 Eos # 0.1 0.1 Baso # 0.0 0.0 Absolute Nucleated RBC 0.00 0.00 Nucleated RBC % 0.0 0.0 Manual Slide Review WBC Morphology Platelet Estimate Platelet Morphology RBC Morph Micro Appear VBG pH Ionized Calcium Sodium 133 L Potassium 3.9 Chloride 99 L Carbon Dioxide 27 Anion Gap 7.0 BUN 14 Creatinine 0.8 Estimated GFR (MDRD) 91 Glucose 108 H Lactic Acid Calcium 7.8 L Phosphorus Magnesium Total Bilirubin 0.6 AST 35 ALT 24 Alkaline Phosphatase 138 H Total Creatine Kinase 161 Total Protein 5.3 L Albumin 2.3 L Globulin 3.0 Albumin/Globulin Ratio 0.8 L Lipase TSH Urine Color Urine Clarity Urine pH Ur Specific [place] Urine Protein Urine Glucose (UA) Urine Ketones Urine Occult Blood Urine Nitrite Urine Bilirubin Urine Urobilinogen Ur Leukocyte Esterase Ur Microscopic Review Urine Culture Comments Ethyl Alcohol 02/18/17 02/18/17 02/18/17 05:36 18:34 18:34 WBC 7.2 8.8 RBC 3.31 L 3.49 L Hgb 11.3 L 11.7 L Hct 33.2 L 34.9 L MCV 100.3 H 100.0 H MCH 34.1 H 33.5 H MCHC 34.0 33.5 RDW 13.8 13.9 Plt Count 151 161 MPV 7.9 7.5 Neut # 4.5 6.0 Lymph # 1.5 1.3 L Walsh # 1.1 H 1.4 H Eos # 0.1 0.0 Baso # 0.0 0.0 Absolute Nucleated RBC 0.00 0.00 Nucleated RBC % 0.0 0.0 Manual Slide Review Indicated WBC Morphology 1+ HYPERSEG NEUT Platelet Estimate NORMAL (130-450,000) Platelet Morphology NORMAL APPEARANCE RBC Morph Micro Appear 1+ ANISOCYTOSIS VBG pH Ionized Calcium YES Sodium 126 L Potassium 4.2 Chloride 91 L Carbon Dioxide 23 Anion Gap 12.0 BUN 13 Creatinine 0.8 Estimated GFR (MDRD) 91 Glucose 142 H Lactic Acid Calcium 8.3 L Phosphorus Magnesium Total Bilirubin 0.7 AST 31 ALT 27 Alkaline Phosphatase 161 H Total Creatine Kinase Total Protein 6.4 L Albumin 2.6 L Globulin 3.8 Albumin/Globulin Ratio 0.7 L Lipase TSH Urine Color Urine Clarity Urine pH Ur Specific [place] Urine Protein Urine Glucose (UA) Urine Ketones Urine Occult Blood Urine Nitrite Urine Bilirubin Urine Urobilinogen Ur Leukocyte Esterase Ur Microscopic Review Urine Culture Comments Ethyl Alcohol 02/18/17 02/18/17 02/20/17 18:34 18:34 05:51 WBC RBC Hgb Hct MCV MCH MCHC RDW Plt Count MPV Neut # Lymph # [place] # Eos # Baso # Absolute Nucleated RBC Nucleated RBC % Manual Slide Review WBC Morphology Platelet Estimate Platelet Morphology RBC Morph Micro Appear VBG pH 7.450 H Ionized Calcium 1.07 L Sodium 135 Potassium 3.9 Chloride 98 L Carbon Dioxide 27 Anion Gap 10.0 BUN 15 Creatinine 0.8 Estimated GFR (MDRD) 91 Glucose 123 H Lactic Acid Calcium 8.4 L Phosphorus Magnesium 1.3 L 2.3 Total Bilirubin AST ALT Alkaline Phosphatase Total Creatine Kinase Total Protein Albumin Globulin Albumin/Globulin Ratio Lipase TSH Urine Color Urine Clarity Urine pH Ur Specific [place] Urine Protein Urine Glucose (UA) Urine Ketones Urine Occult Blood Urine Nitrite Urine Bilirubin Urine Urobilinogen Ur Leukocyte Esterase Ur Microscopic Review Urine Culture Comments Ethyl Alcohol - DIAGNOSTIC IMAGING Diagnostic Imaging Results: Final report reviewed Diagnostic Imaging Results Comments: CT head Impression: No acute intracranial CT abnormality. No evidence of hemorrhage or mass-effect. Chest x-ray 02/15/2017 Impression: 1. New airspace disease in the right lung. Differential consideration include pneumonia, aspiration, pneumonitis or asymmetric edema. Cervical spine x-ray Impression: Markedly limited image of the cervical spine with no evidence of fracture in the upper portion. Consider CT for further evaluation. CT head 02/18/2017 Impression: 1. Negative noncontrast CT scan of the head. No acute abnormality 2. 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 These are seen posteromedially at the left parieto-occipital junction and in the posterior inferior right cerebellum. 3. Intracranial atherosclerotic vascular calcifications. Chest x-ray 02/19/2017 Impression: Hypoventilatory. Progressive airspace opacities, as described. - FOLLOW UP Follow Up: Patient is being discharged to [facility] for physical therapy, Occupational Therapy and speech therapy. Patient will also complete another 7 days of oral antibiotics for pneumonia with likely aspiration. The patient will follow up with his primary care physician once he is discharged and stabilized. - TIME SPENT Time Spent in Discharge (Minutes): 45
== END 2017-02-22 14:45 | DRG 178 ==
LOC: EDUNIT# → ED 15:26 → OBS 19:52 → OBSVTOIN 21:59 → MS2 02-16 00:19
PROVIDERS: ADMIT Internal Medicine; ATTEND Internal Medicine
DX: J69.0 Pneumonitis due to inhalation of food and vomit (principal); E87.1 Hypo-osmolality and hyponatremia; M62.82 Rhabdomyolysis; R41.0 Disorientation, unspecified; E86.0 Dehydration; R53.1 Weakness; Z91.81 History of falling; E83.42 Hypomagnesemia; E87.8 Other disorders of electrolyte and fluid balance, not elsewhere classified; I10 Essential (primary) hypertension; E78.5 Hyperlipidemia, unspecified; S22.42XD Multiple fractures of ribs, left side, subsequent encounter for fracture with routine healing; W19.XXXD Unspecified fall, subsequent encounter; R13.10 Dysphagia, unspecified; M19.90 Unspecified osteoarthritis, unspecified site; G89.29 Other chronic pain; M54.9 Dorsalgia, unspecified; K21.9 Gastro-esophageal reflux disease without esophagitis; H54.7 Unspecified visual loss; H91.90 Unspecified hearing loss, unspecified ear; Z79.82 Long term (current) use of aspirin; Z79.899 Other long term (current) drug therapy; Z85.46 Personal history of malignant neoplasm of prostate; Z66 Do not resuscitate; Z90.79 Acquired absence of other genital organ(s)
CPT/HCPCS: 36415; 70450; 71010; 72040; 80048; 80053; 80320; 81001; 81003; 82330; 82550; 83605; 83690; 83735; 84100; 84443; 85025; 87086; 96360; 96361; 99283; 99284

== ENCOUNTER 2017-04-19 15:20 | Outpatient (CLI) | payer MEDICARE, MEDICAID ==
[2017-04-19 02:45] LABS: BILIRUBIN,URINE NEGATIVE (NEGATIVE); UA CHARGE (STRIP ONLY) YES; UR CULTURE IF IND NOT INDICATED
[2017-04-19 02:48] LABS: CALCIUM 8.7 mg/dL (8.5-10.3); POTASSIUM 5.2 mmol/L (3.5-5.0)
[2017-04-19 02:53] LABS: BASOPHILS # (AUTO) 0.1 10^3/uL (0.0-0.1); BASOPHILS % (AUTO) 0.8 %; EOSINOPHILS # (AUTO) 0.4 10^3/uL (0.0-0.7); HGB - HEMOGLOBIN 10.9 g/dL (14.0-18.0); LYMPHOCYTES # (AUTO) 2.2 10^3/uL (1.5-3.5); MEAN CORPUSCULAR HEMOGLOBIN 31.4 pg (27.0-31.0); MEAN CORPUSCULAR HGB CONC 33.9 g/dL (32.0-36.0); MEAN CORPUSCULAR VOLUME 92.4 fL (80.0-94.0); MEAN PLATELET VOLUME 7.8 fL (7.4-11.4); MONOCYTES # (AUTO) 1.2 10^3/uL (0.0-1.0); MONOCYTES % (AUTO) 11.6 %; NEUTROPHILS # (AUTO) 6.3 10^3/uL (1.5-6.6); NEUTROPHILS % (AUTO) 61.6 %; NUCLEATED RED BLOOD CELLS AUTO 0.1 /100WBC; RED BLOOD COUNT 3.47 10^6/uL (4.70-6.10); RED CELL DISTRIBUTION WIDTH 13.9 % (12.0-15.0); UNCORRECTED WHITE BLOOD COUNT 10.2 x10^3/uL; WHITE BLOOD COUNT 10.2 x10^3/uL (4.8-10.8)
== END 2017-04-19 15:21 | disposition home or self-care (01) ==
LOC: LAB.R 15:20
DX: I50.9 Heart failure, unspecified (principal); I10 Essential (primary) hypertension; N39.0 Urinary tract infection, site not specified
CPT/HCPCS: 80048; 81001; 81003; 85025; 87086

== ENCOUNTER 2017-04-26 14:13 | Outpatient (CLI) | payer MEDICARE, MEDICAID ==
[2017-04-26 01:08] LABS: CREATININE 0.9 mg/dL (0.6-1.2)
[2017-04-26 01:20] LABS: CALCIUM 8.4 mg/dL (8.5-10.3); POTASSIUM 4.4 mmol/L (3.5-5.0)
== END 2017-04-26 14:14 | disposition home or self-care (01) ==
LOC: LAB.R 14:13
DX: I10 Essential (primary) hypertension (principal); E87.1 Hypo-osmolality and hyponatremia
CPT/HCPCS: 80048; 83930

== ENCOUNTER 2017-04-27 11:00 | Outpatient (CLI) | payer MEDICARE, MEDICAID | END 2017-04-27 11:01 | disposition home or self-care (01) | LOC: LAB.R 11:00 | DX: E87.1 Hypo-osmolality and hyponatremia (principal) | CPT/HCPCS: 83935; 84300 ==

== ENCOUNTER 2017-04-27 18:00 | Outpatient (CLI) | payer MEDICARE, MEDICAID | END 2017-04-27 18:01 | disposition critical access hospital (66) | LOC: EMS 18:00 | PROVIDERS: ATTEND Surgery | DX: E87.6 Hypokalemia (principal) | CPT/HCPCS: A0425; A0429 ==

== ENCOUNTER 2017-04-27 18:04 | Emergency (ER) | payer MEDICARE, MEDICAID ==
[2017-04-27 18:14] VITALS: BP 140/53
[2017-04-27 18:49] LABS: BASOPHILS % (AUTO) 0.4 %; EOSINOPHILS # (AUTO) 0.4 10^3/uL (0.0-0.7); EOSINOPHILS % (AUTO) 5.9 %; HCT - HEMATOCRIT 27.2 % (42.0-52.0); HGB - HEMOGLOBIN 9.1 g/dL (14.0-18.0); LYMPHOCYTES # (AUTO) 1.9 10^3/uL (1.5-3.5); LYMPHOCYTES % (AUTO) 27.1 %; MEAN CORPUSCULAR HEMOGLOBIN 30.5 pg (27.0-31.0); MEAN CORPUSCULAR HGB CONC 33.7 g/dL (32.0-36.0); MEAN CORPUSCULAR VOLUME 90.4 fL (80.0-94.0); MEAN PLATELET VOLUME 7.2 fL (7.4-11.4); MONOCYTES # (AUTO) 1.3 10^3/uL (0.0-1.0); MONOCYTES % (AUTO) 18.4 %; NEUTROPHILS # (AUTO) 3.3 10^3/uL (1.5-6.6); NEUTROPHILS % (AUTO) 48.2 %; RED CELL DISTRIBUTION WIDTH 14.1 % (12.0-15.0); UNCORRECTED WHITE BLOOD COUNT 6.9 x10^3/uL; WHITE BLOOD COUNT 6.9 x10^3/uL (4.8-10.8)
[2017-04-27 18:56] LABS: CALCIUM 8.7 mg/dL (8.5-10.3); CREATININE 1.1 mg/dL (0.6-1.2); POTASSIUM 5.2 mmol/L (3.5-5.0)
--- NOTE | 2017-04-27 19:15 | ED Physician Documentation ---
History of Present Illness - Stated complaint Stated Complaint: LOW SODIUM - Chief complaint Chief Complaint: General - History obtained from History obtained from: Patient (pt arrived by EMS after they were called because labs that were drawn yesterday resulted today and he had a low sodium. Pt states that he has no symptoms.) Review of Systems Constitutional: denies: Fever, Chills, Fatigue Eyes: denies: Loss of vision, Decreased vision Ears: denies: Loss of hearing, Tinnitus/ringing Nose: denies: Congestion, Sinus pressure / pain Throat: denies: Sore throat Cardiac: denies: Chest pain / pressure, Palpitations, Pedal edema, Calf pain Respiratory: denies: Dyspnea, Cough GI: denies: Abdominal Pain, Nausea, Vomiting, Constipation, Diarrhea : denies: Dysuria, Frequency, Hesitancy Skin: denies: Rash, Lesions Musculoskeletal: denies: Neck pain, Back pain, Extremity pain, Joint swelling Neurologic: denies: Generalized weakness, Focal weakness, Numbness, Difficulty speaking, Seizure, Confused, Altered mental status, Headache, Head injury PD PAST MEDICAL HISTORY - Past Medical History Past Medical History: Yes Cardiovascular: Hypertension, High cholesterol Respiratory: Pneumonia Endocrine/Autoimmune: None GI: GERD : Benign prostate hypertrophy HEENT: Chronic hearing loss Psych: None Musculoskeletal: Osteoarthritis Derm: Other - 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 HEENT: Cataracts - Present Medications Home Medications: Ambulatory Orders Medication Instructions Recorded Confirmed Simvastatin 40 mg PO DAILY 07/22/16 04/27/17 Tamsulosin [Flomax] 0.4 mg PO DAILY 07/22/16 04/27/17 Aspirin 81 mg PO DAILY 02/15/17 04/27/17 Omeprazole [PriLOSEC] 20 mg PO DAILY 02/15/17 04/27/17 Latanoprost 1 drops EACHEYE DAILY PM 02/16/17 04/27/17 Lisinopril 20 mg PO DAILY 02/16/17 04/27/17 Travoprost 0.004% Ophth Drops 1 drops EACHEYE DAILY PM 02/16/17 04/27/17 [Travatan Z] hydroCHLOROthiazide [Hydrodiuril] 12.5 mg PO DAILY 02/16/17 04/27/17 Gabapentin [Neurontin] 300 mg PO BID #60 capsule 02/21/17 04/27/17 Magnesium Oxide [Mag Ox] 400 mg PO BID #60 tablet 02/21/17 04/27/17 Qcyjgpmcswgn-Fuhs-Fhtmteka,Iso 3.375 gm IV BID #20 froz.piggy 02/21/17 04/27/17 [Zosyn 3.375 gm/50 ml Galaxy] - Allergies Allergies/Adverse Reactions: Allergies Allergy/AdvReac Type Severity Reaction Status Date / Time No Known Drug Allergies Allergy Verified 07/20/15 14:47 - Social History Does the pt smoke?: No Smoking Status: Never smoker Does the pt drink ETOH?: No Does the pt have substance abuse?: No - Immunizations Immunizations are current?: Yes - POLST Patient has POLST: No POLST Status: DNR PD ED PE NORMAL - Vitals Vital signs reviewed: Yes - General General: Alert and oriented X 3, No acute distress, Well developed/nourished - HEENT HEENT: PERRL, Moist mucous membranes, Pharynx benign - Neck Neck: Supple, no meningeal sign, No adenopathy - Cardiac Cardiac: RRR, No murmur - Respiratory Respiratory: No respiratory distress, Clear bilaterally - Abdomen Abdomen: Soft, Non tender, Non distended - Back Back: No CVA TTP, No spinal TTP - Derm Derm: Normal color, No rash - Extremities Extremities: No deformity, No tenderness to palpate - Neuro Neuro: Alert and oriented X 3, 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 No: Weakness, Abnormal sensation Results - Vitals Vitals: Vital Signs - 24 hr 04/27/17 18:06 Temperature 36.9 C Heart Rate 71 Respiratory 16 Rate Blood Pressure 140/53 H O2 Saturation 98 Oxygen O2 Source Room air - Labs Labs: Laboratory Tests 04/27/17 04/27/17 18:37 18:37 WBC 6.9 RBC 3.00 L Hgb 9.1 L Hct 27.2 L MCV 90.4 MCH 30.5 MCHC 33.7 RDW 14.1 Plt Count 177 MPV 7.2 L Neut # 3.3 Lymph # 1.9 [place] # 1.3 H Eos # 0.4 Baso # 0.0 Absolute Nucleated RBC 0.00 Nucleated RBC % 0.0 Sodium 124 L Potassium 5.2 H Chloride 88 L Carbon Dioxide 25 Anion Gap 11.0 BUN 17 Creatinine 1.1 Estimated GFR (MDRD) 63 L Glucose 114 H Calcium 8.7 PD MEDICAL DECISION MAKING - ED course Complexity details: d/w patient ED course: pt is asymptomatic. has a NA of 124 but he hs been low in the past 125 on 06/19 and 126 on 02/18 and 133 on 02/17. pt is asymptomatic in the ER. discussed with him. we discussed limiting his water intake and calling his primary care provider tomorrow for a follow up. he expressed understanding. Departure - Departure Disposition: 01 Home, Self Care Clinical Impression: Hyponatremia Condition: Good Instructions: ED Hyponatremia Follow-Up: Bob Caballero DO [Primary Care Provider] - Comments: Call your primary care provider tomorrow. Decrease your water intake for the next 24 hours. Return to the ER for any new or worsening symptoms,
== END 2017-04-27 22:10 | disposition home or self-care (01) ==
LOC: EDUNIT# → ED 18:04
DX: E87.1 Hypo-osmolality and hyponatremia (principal); I10 Essential (primary) hypertension; E78.00 Pure hypercholesterolemia, unspecified; Z79.82 Long term (current) use of aspirin
CPT/HCPCS: 36415; 80048; 83935; 84300; 85025; 99282; 99283

== ENCOUNTER 2017-05-02 05:25 | Outpatient (CLI) | payer MEDICARE, MEDICAID | END 2017-05-02 05:26 | disposition critical access hospital (66) | LOC: EMS 05:25 | PROVIDERS: ATTEND Surgery | DX: S00.01XA Abrasion of scalp, initial encounter (principal); W05.0XXA Fall from non-moving wheelchair, initial encounter; Y92.129 Unspecified place in nursing home as the place of occurrence of the external cause | CPT/HCPCS: A0425; A0429 ==

== ENCOUNTER 2017-05-02 05:30 | Emergency (ER) | payer MEDICARE, MEDICAID ==
--- NOTE | 2017-05-02 05:56 | ED Physician Documentation ---
PD HPI HEAD INJURY - Stated complaint Stated Complaint: FALL - Chief complaint Chief Complaint: Trauma Hd/Nk - History obtained from History obtained from: Patient, EMS - History of Present Illness Mechanism of head injury: Fell Where head injury occurred: Home Timing - onset: Today Location of injury: Top Quality of pain: Pain Associated symptoms: No: LOC, AMS, Nausea / vomiting, Neck pain Contributing factors: Anticoagulated Similar symptoms before: Work up / diagnostics Recently seen: Not recently seen - Additional information Additional information: Patient is an 86 year old [facility] patient who is presenting to the emergency department for fall. patient has chronic lower extremity edema and likes to sleep in his wheel chair. Patient fell forward hitting his head so the [facility] staff sent the patient in for evaluation. they also stated that his legs seem more swollen but patient spends most of the day in his wheel chair. Review of Systems Constitutional: denies: Fever, Chills Eyes: denies: Decreased vision, Photophobia Ears: denies: Drainage/discharge Nose: denies: Epistaxis Throat: denies: Dental pain / toothache Cardiac: reports: Pedal edema. denies: Chest pain / pressure, Palpitations Respiratory: denies: Cough, Wheezing GI: denies: Nausea, Vomiting Skin: reports: Rash, Lesions, Abrasion (s) Musculoskeletal: denies: Neck pain, Back pain Neurologic: reports: Headache, Head injury. 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 HEENT: Cataracts - Present Medications Home Medications: Ambulatory Orders Medication Instructions Recorded Confirmed Simvastatin 40 mg PO DAILY 07/22/16 05/02/17 Tamsulosin [Flomax] 0.4 mg PO DAILY 07/22/16 05/02/17 Aspirin 81 mg PO DAILY 02/15/17 05/02/17 Omeprazole [PriLOSEC] 20 mg PO DAILY 02/15/17 05/02/17 Lisinopril 20 mg PO DAILY 02/16/17 05/02/17 Travoprost 0.004% Ophth Drops 1 drops EACHEYE DAILY PM 02/16/17 05/02/17 [Travatan Z] hydroCHLOROthiazide [Hydrodiuril] 12.5 mg PO DAILY 02/16/17 05/02/17 Gabapentin [Neurontin] 300 mg PO BID #60 capsule 02/21/17 05/02/17 Hjzbqozkaltm-Efic-Jilinqyq,Iso 3.375 gm IV BID #20 froz.piggy 02/21/17 05/02/17 [Zosyn 3.375 gm/50 ml Galaxy] Latanoprost [Latanoprost] 1 drops EACHEYE DAILY 05/02/17 05/02/17 Magnesium Oxide [Mag Ox] 500 mg PO BID 05/02/17 05/02/17 - Allergies Allergies/Adverse Reactions: Allergies Allergy/AdvReac Type Severity Reaction Status Date / Time No Known Drug Allergies Allergy Verified 07/20/15 14:47 - Social History Does the pt smoke?: No Smoking Status: Never smoker Does the pt drink ETOH?: No Does the pt have substance abuse?: No - Immunizations Immunizations are current?: Yes - POLST Patient has POLST: No POLST Status: DNR PD ED PE NORMAL - Vitals Vital signs reviewed: Yes - General General: Alert and oriented X 3, No acute distress - HEENT HEENT: PERRL, Other (dentures not fully in) - Neck Neck: Supple, no meningeal sign, No bony TTP - Cardiac Cardiac: RRR, No murmur - Respiratory Respiratory: No respiratory distress - Abdomen Abdomen: Soft - Neuro Neuro: Alert and oriented X 3, No motor deficit, No sensory deficit, Normal speech Eye Opening: Spontaneous Motor: Obeys Commands Verbal: Oriented GCS Score: 15 PD ED PE EXPANDED - HEENT HEENT: Head injury (abrasion on the top of patient's head) - Derm Derm: Abrasion (s) (multiple abrasions and skin tears throughout patient's body) - Extremities Extremities: Pedal edema bilateral (plus 4 pitting edema bilaterally) Results - Vitals Vitals: Vital Signs - 24 hr 05/02/17 05:33 Temperature 36.8 C Heart Rate 78 Respiratory 18 Rate Blood Pressure 139/53 H O2 Saturation 100 Oxygen O2 Source Room air - Labs Labs: Laboratory Tests 05/02/17 05/02/17 06:08 06:08 WBC 9.6 RBC 3.26 L Hgb 10.0 L Hct 29.5 L MCV 90.8 MCH 30.6 MCHC 33.7 RDW 14.3 Plt Count 237 MPV 6.9 L Neut # 5.6 Lymph # 2.4 Falls # 1.2 H Eos # 0.5 Baso # 0.0 Absolute Nucleated RBC 0.00 Nucleated RBC % 0.0 Sodium 125 L Potassium 4.7 Chloride 92 L Carbon Dioxide 24 Anion Gap 9.0 BUN 19 Creatinine 1.1 Estimated GFR (MDRD) 63 L Glucose 128 H Calcium 8.6 - Rads (name of study) ct head Radiology: Final report received (no acute changes) PD MEDICAL DECISION MAKING - ED course Complexity details: reviewed old records, reviewed results, re-evaluated patient , considered differential, d/w patient ED course: Patient was seen and examined at bedside. imaging was ordered and labs were drawn. patient's CT showed no acute abnormalities and patient's electrolytes were at patient's baseline. Patient was asymptomatic and was stable for discharge with outpatient follow up. Departure - Departure Disposition: 01 Home, Self Care Clinical Impression: Fall from slip, trip, or stumble, Hyponatremia, Head injury Condition: Good Instructions: ED Head Injury Closed, ED Abrasion Follow-Up: Bob Caballero DO [Primary Care Provider] - Within 3 Days Comments: Your diagnostics today were unchanged from your baseline. The swelling in your legs is only going to get better if you elevate your legs. Even if your want to sit in the chair your legs need to be elevated. YOu should also be wearing compression stockings. You should follow up with your doctor for possible medication changes as necessary. You should keep your wounds clean and try and you can apply topical antibiotics as necessary. You may return to the emergency department at any time for new worsening or uncontrollable symptoms.
[2017-05-02 06:16] LABS: BASOPHILS % (AUTO) 0.3 %; EOSINOPHILS # (AUTO) 0.5 10^3/uL (0.0-0.7); EOSINOPHILS % (AUTO) 4.7 %; HCT - HEMATOCRIT 29.5 % (42.0-52.0); LYMPHOCYTES # (AUTO) 2.4 10^3/uL (1.5-3.5); LYMPHOCYTES % (AUTO) 24.6 %; MEAN CORPUSCULAR HEMOGLOBIN 30.6 pg (27.0-31.0); MEAN CORPUSCULAR HGB CONC 33.7 g/dL (32.0-36.0); MEAN CORPUSCULAR VOLUME 90.8 fL (80.0-94.0); MEAN PLATELET VOLUME 6.9 fL (7.4-11.4); MONOCYTES # (AUTO) 1.2 10^3/uL (0.0-1.0); MONOCYTES % (AUTO) 12.3 %; NEUTROPHILS # (AUTO) 5.6 10^3/uL (1.5-6.6); NEUTROPHILS % (AUTO) 58.1 %; RED BLOOD COUNT 3.26 10^6/uL (4.70-6.10); RED CELL DISTRIBUTION WIDTH 14.3 % (12.0-15.0); UNCORRECTED WHITE BLOOD COUNT 9.6 x10^3/uL; WHITE BLOOD COUNT 9.6 x10^3/uL (4.8-10.8)
--- NOTE | 2017-05-02 06:25 | CT Preliminary Report ---
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 These are unchanged. No acute intracranial process identified. [facility] SITE ID: [id number]
[2017-05-02 06:26] LABS: CALCIUM 8.6 mg/dL (8.5-10.3); CREATININE 1.1 mg/dL (0.6-1.2); POTASSIUM 4.7 mmol/L (3.5-5.0)
--- NOTE | 2017-05-02 06:27 | CT Report ---
EXAM: CT HEAD EXAM DATE: 05/02/2017 06:08 AM. CLINICAL HISTORY: Fall, head trauma. COMPARISON: 02/18/2017. TECHNIQUE: Multiaxial CT images were obtained from the foramen magnum to the vertex. Reformats: Coron al. IV contrast: None. In accordance with CT protocol optimization, one or more of the following dose reduction techniques w ere utilized for this exam: automated exposure control, adjustment of mA and/or KV based on patient s ize, or use of iterative reconstructive technique. FINDINGS: Parenchyma: No intraparenchymal hemorrhage. No evidence of mass, midline shift, or CT findings of int erval infarction. Negrete-white differentiation is distinct. Old infarcts medial left parietal/occipital lobe, right cerebellum. These are unchanged. Extraaxial Spaces: Normal for age. No subdural or epidural collections identified. Ventricles: Normal in size and position. Sinuses and Orbits: Imaged paranasal sinuses, orbits, and mastoids show no significant abnormality. Bones: No evidence of fracture or calvarial defect. Other: None. 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 These are unchanged. No acute intracranial process identified. [facility] Referring Provider Line: [phone] SITE ID: [id number]
[2017-05-02] MEDS ORDERED: BACITRACIN OINT TOP STA (06:33)
[2017-05-02] MEDS ORDERED: BACITRACIN OINT TOP ONE (06:47)
[2017-05-02 09:11] VITALS: BP 124/52
== END 2017-05-02 08:45 | disposition home or self-care (01) ==
LOC: EDBD → EDUNIT# → SUPCPDRO 05:30 → ED 05:30
DX: S09.90XA Unspecified injury of head, initial encounter (principal); W05.0XXA Fall from non-moving wheelchair, initial encounter; Y92.129 Unspecified place in nursing home as the place of occurrence of the external cause; E87.1 Hypo-osmolality and hyponatremia; I10 Essential (primary) hypertension; E78.00 Pure hypercholesterolemia, unspecified; K21.9 Gastro-esophageal reflux disease without esophagitis; N40.0 Benign prostatic hyperplasia without lower urinary tract symptoms; M19.90 Unspecified osteoarthritis, unspecified site
CPT/HCPCS: 36415; 70450; 80048; 85025; 99284; A9270

== ENCOUNTER 2017-05-05 08:00 | Outpatient (CLI) | payer MEDICARE, MEDICAID ==
[2017-05-05 19:39] LABS: CALCIUM 8.5 mg/dL (8.5-10.3); POTASSIUM 4.8 mmol/L (3.5-5.0)
== END 2017-05-05 08:01 | disposition home or self-care (01) ==
LOC: LAB.R 08:00
DX: I10 Essential (primary) hypertension (principal); E87.1 Hypo-osmolality and hyponatremia
CPT/HCPCS: 80048; 83930

== ENCOUNTER 2017-05-15 08:00 | Outpatient (CLI) | payer MEDICARE, MEDICAID ==
[2017-05-15 04:05] LABS: BILIRUBIN,URINE NEGATIVE (NEGATIVE); GLUCOSE, URINE (UA) NEGATIVE (NEGATIVE); KETONES,URINE (UA) NEGATIVE (NEGATIVE); LEUKOCYTE ESTERASE, URINE MODERATE (NEGATIVE); NITRITE,URINE NEGATIVE (NEGATIVE); OCCULT BLOOD,URINE NEGATIVE (NEGATIVE); PROTEIN,URINE NEGATIVE (NEGATIVE); UROBILINOGEN,URINE 0.2 (NORMAL) E.U./dL (NORMAL)
[2017-05-15 04:08] LABS: BASOPHILS % (AUTO) 0.4 %; EOSINOPHILS # (AUTO) 0.1 10^3/uL (0.0-0.7); EOSINOPHILS % (AUTO) 1.1 %; LYMPHOCYTES # (AUTO) 1.6 10^3/uL (1.5-3.5); LYMPHOCYTES % (AUTO) 16.9 %; MEAN CORPUSCULAR HEMOGLOBIN 29.6 pg (27.0-31.0); MEAN CORPUSCULAR HGB CONC 32.5 g/dL (32.0-36.0); MONOCYTES # (AUTO) 1.5 10^3/uL (0.0-1.0); MONOCYTES % (AUTO) 15.7 %; NEUTROPHILS # (AUTO) 6.3 10^3/uL (1.5-6.6); NEUTROPHILS % (AUTO) 65.9 %; PLT - PLATELET COUNT 269 10^3/uL (130-450); RED BLOOD COUNT 3.39 10^6/uL (4.70-6.10); RED CELL DISTRIBUTION WIDTH 14.3 % (12.0-15.0); WHITE BLOOD COUNT 9.6 x10^3/uL (4.8-10.8)
[2017-05-15 04:10] LABS: CALCIUM 8.4 mg/dL (8.5-10.3); CREATININE 1.4 mg/dL (0.6-1.2)
[2017-05-15 04:12] LABS: BACTERIA,URINE Many /HPF (None Seen); CASTS, URINE 0-2 Hyaline Casts /LPF; CLARITY,URINE HAZY (CLEAR); RBC,URINE 0-5 /HPF (0-5); SQUAMOUS EPITHELIAL CELL,UR FEW Squamous (<= Few)
== END 2017-05-15 23:59 | disposition home or self-care (01) ==
LOC: LAB.R 08:00
DX: I50.9 Heart failure, unspecified (principal); D64.9 Anemia, unspecified; E87.1 Hypo-osmolality and hyponatremia
CPT/HCPCS: 80048; 81001; 81003; 83930; 85025; 87086

== ENCOUNTER 2017-06-28 16:15 | Outpatient (CLI) | payer MEDICARE, MEDICAID ==
[2017-06-28 22:00] LABS: CALCIUM 8.4 mg/dL (8.5-10.3); CREATININE 1.1 mg/dL (0.6-1.2)
== END 2017-06-28 16:16 | disposition home or self-care (01) ==
LOC: LAB.R 16:15
DX: I10 Essential (primary) hypertension (principal)
CPT/HCPCS: 80048

== ENCOUNTER 2017-08-02 12:30 | Outpatient (CLI) | payer MEDICARE, MEDICAID ==
[2017-08-02 21:04] LABS: BILIRUBIN,URINE NEGATIVE (NEGATIVE); CLARITY,URINE CLOUDY (CLEAR); GLUCOSE, URINE (UA) NEGATIVE (NEGATIVE); KETONES,URINE (UA) NEGATIVE (NEGATIVE); LEUKOCYTE ESTERASE, URINE MODERATE (NEGATIVE); NITRITE,URINE NEGATIVE (NEGATIVE); OCCULT BLOOD,URINE TR (NEGATIVE); PH,URINE 6.5 PH (5.0-7.5); PROTEIN,URINE NEGATIVE (NEGATIVE); UROBILINOGEN,URINE 0.2 (NORMAL) E.U./dL (NORMAL)
[2017-08-02 21:05] LABS: BACTERIA,URINE Many /HPF (None Seen); RBC,URINE None Seen /HPF (0-5); SQUAMOUS EPITHELIAL CELL,UR FEW Squamous (<= Few)
== END 2017-08-02 12:31 | disposition home or self-care (01) ==
LOC: LAB.R 12:30
DX: N39.0 Urinary tract infection, site not specified (principal)
CPT/HCPCS: 81001; 81003; 87086

== ENCOUNTER 2017-08-02 20:20 | Outpatient (CLI) | payer MEDICARE, MEDICAID ==
[2017-08-02 23:32] LABS: BASOPHILS % (AUTO) 0.5 %; EOSINOPHILS % (AUTO) 0.6 %; HGB - HEMOGLOBIN 10.6 g/dL (14.0-18.0); LYMPHOCYTES # (AUTO) 1.7 10^3/uL (1.5-3.5); LYMPHOCYTES % (AUTO) 24.9 %; MEAN CORPUSCULAR HEMOGLOBIN 28.4 pg (27.0-31.0); MEAN CORPUSCULAR HGB CONC 33.5 g/dL (32.0-36.0); MEAN CORPUSCULAR VOLUME 84.6 fL (80.0-94.0); MEAN PLATELET VOLUME 8.3 fL (7.4-11.4); MONOCYTES # (AUTO) 1.4 10^3/uL (0.0-1.0); MONOCYTES % (AUTO) 20.8 %; NEUTROPHILS # (AUTO) 3.6 10^3/uL (1.5-6.6); NEUTROPHILS % (AUTO) 53.2 %; PLT - PLATELET COUNT 172 10^3/uL (130-450); RED BLOOD COUNT 3.74 10^6/uL (4.70-6.10); RED CELL DISTRIBUTION WIDTH 14.7 % (12.0-15.0); WHITE BLOOD COUNT 6.8 x10^3/uL (4.8-10.8)
[2017-08-02 23:39] LABS: CALCIUM 8.4 mg/dL (8.5-10.3); CREATININE 1.3 mg/dL (0.6-1.2)
== END 2017-08-02 20:21 | disposition home or self-care (01) ==
LOC: LAB.R 20:20
DX: I10 Essential (primary) hypertension (principal); D64.9 Anemia, unspecified; N39.0 Urinary tract infection, site not specified
CPT/HCPCS: 80048; 81001; 85025; 87086

== ENCOUNTER 2017-09-12 11:50 | Emergency (ER) | payer MEDICARE, MEDICAID ==
[2017-09-12 12:02] VITALS: BP 127/56
[2017-09-12] MEDS ORDERED: cephALEXin 250 MG CAPSULE PO STA (12:57)
--- NOTE | 2017-09-12 12:59 | ED Physician Documentation ---
PD HPI LOWER EXT INJURY - Stated complaint Stated Complaint: LFT LEG SWELLING - Chief complaint Chief Complaint: Wound - History obtained from History obtained from: Patient, Caregiver - History of Present Illness PD HPI LOW EXT INJURY LOCATION: Other (87-year-old gentleman who is quite hard of hearing is brought in by his caregiver for wounds on the left leg. She contends that they were not there when she left work on and then when she returned yesterday she feels like He was potentially injured by the other caregiver putting salve on it to roughly.) Review of Systems Constitutional: reports: Reviewed and negative Throat: reports: Reviewed and negative Cardiac: reports: Reviewed and negative PD PAST MEDICAL HISTORY - Past Medical History Past Medical History: Yes Cardiovascular: Hypertension, High cholesterol Respiratory: Pneumonia Endocrine/Autoimmune: None GI: GERD : Benign prostate hypertrophy HEENT: Chronic hearing loss Psych: None Musculoskeletal: Osteoarthritis Derm: Other - Past Surgical History 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 HEENT: Cataracts - Present Medications Home Medications: Ambulatory Orders Medication Instructions Recorded Confirmed Simvastatin 40 mg PO DAILY 07/22/16 09/12/17 Tamsulosin [Flomax] 0.4 mg PO DAILY 07/22/16 09/12/17 Aspirin 81 mg PO DAILY 02/15/17 09/12/17 Omeprazole [PriLOSEC] 20 mg PO DAILY 02/15/17 09/12/17 Travoprost 0.004% Ophth Drops 1 drops EACHEYE DAILY PM 02/16/17 09/12/17 [Travatan Z] Gabapentin [Neurontin] 300 mg PO BID #60 capsule 02/21/17 09/12/17 Latanoprost [Latanoprost] 1 drops EACHEYE DAILY 05/02/17 09/12/17 Magnesium Oxide [Mag Ox] 500 mg PO BID 05/02/17 09/12/17 Cephalexin [Keflex] 500 mg PO QID #40 capsule 09/12/17 - Allergies Allergies/Adverse Reactions: Allergies Allergy/AdvReac Type Severity Reaction Status Date / Time No Known Drug Allergies Allergy Verified 07/20/15 14:47 - Social History Does the pt smoke?: No Smoking Status: Never smoker Does the pt drink ETOH?: No Does the pt have substance abuse?: No - Immunizations Immunizations are current?: Yes - POLST Patient has POLST: No POLST Status: DNR PD ED PE NORMAL - Vitals Vital signs reviewed: Yes - General General: Alert and oriented X 3, Other (Very hard of hearing) - Derm Derm: Normal color, Warm and dry - Extremities Extremities: Other (There is some pedal edema on both sides, he has a well- circumscribed area of cellulitis there is circumferential around the leg from just above the ankle to maybe a third of the way up the calf. There are a few bullae on there laterally and then some open very shallow based ulcers anteriorly. The largest of these was cultured during examination.) Results - Vitals Vitals: Vital Signs - 24 hr 09/12/17 11:58 Temperature 36.8 C Heart Rate 86 Respiratory 14 Rate Blood Pressure 127/56 L O2 Saturation 98 Oxygen O2 Source Room air Departure - Departure Disposition: 01 Home, Self Care Clinical Impression: Left leg cellulitis Condition: Good Record reviewed to determine appropriate education?: Yes Instructions: Cellulitis Dc Prescriptions: Cephalexin [Keflex] 500 mg PO QID #40 capsule Comments: Call your doctor to arrange a follow-up appointment, make the next available appointment. In the interim, return anytime if worse or if new symptoms develop. We are performing a wound culture, the results should be done in 48-72 hours. If antibiotic change is necessary we will call you. Return if worse in the meantime, especially if you develop increased pain, fevers, cannot keep down the medication. Otherwise follow-up with your physician in approximately 2-3 days.
== END 2017-09-12 13:21 | disposition home or self-care (01) ==
LOC: ED 11:50
DX: L03.116 Cellulitis of left lower limb (principal); I10 Essential (primary) hypertension; E78.00 Pure hypercholesterolemia, unspecified; K21.9 Gastro-esophageal reflux disease without esophagitis; N40.0 Benign prostatic hyperplasia without lower urinary tract symptoms; M19.90 Unspecified osteoarthritis, unspecified site; Z79.82 Long term (current) use of aspirin
CPT/HCPCS: 87070; 87205; 99282; 99283; A9270

== ENCOUNTER 2017-11-30 14:28 | Outpatient (CLI) | payer MEDICARE, MEDICAID ==
[2017-11-30 19:11] LABS: BASOPHILS % (AUTO) 0.3 %; EOSINOPHILS # (AUTO) 0.2 10^3/uL (0.0-0.7); EOSINOPHILS % (AUTO) 3.2 %; LYMPHOCYTES # (AUTO) 2.4 10^3/uL (1.5-3.5); LYMPHOCYTES % (AUTO) 33.7 %; MEAN CORPUSCULAR HEMOGLOBIN 28.6 pg (27.0-31.0); MEAN CORPUSCULAR HGB CONC 32.2 g/dL (32.0-36.0); MEAN CORPUSCULAR VOLUME 88.7 fL (80.0-94.0); MEAN PLATELET VOLUME 7.9 fL (7.4-11.4); MONOCYTES # (AUTO) 0.8 10^3/uL (0.0-1.0); MONOCYTES % (AUTO) 11.3 %; NEUTROPHILS # (AUTO) 3.7 10^3/uL (1.5-6.6); NEUTROPHILS % (AUTO) 51.5 %; PLT - PLATELET COUNT 217 10^3/uL (130-450); RED BLOOD COUNT 4.19 10^6/uL (4.70-6.10); RED CELL DISTRIBUTION WIDTH 16.4 % (12.0-15.0); WHITE BLOOD COUNT 7.3 x10^3/uL (4.8-10.8)
[2017-11-30 19:23] LABS: HB2 TOTAL 13.5 g/dL; HEMOGLOBIN A1C 0.61 g/dL; HEMOGLOBIN A1C % 6.3 % (4.6-6.2)
[2017-11-30 19:33] LABS: ALBUMIN 3.1 g/dL (3.2-5.5); ALBUMIN/GLOBULIN RATIO 0.8 (1.0-2.2); ALKALINE PHOSPHATASE 126 IU/L (42-121); ALT ALANINE AMINOTRANSFERASE 11 IU/L (10-60); AST ASPARTATE AMINOTRANSFERASE 21 IU/L (10-42); BILIRUBIN,TOTAL 0.4 mg/dL (0.2-1.0); BUN - BLOOD UREA NITROGEN 14 mg/dL (6-20); CALCIUM 8.8 mg/dL (8.5-10.3); CARBON DIOXIDE - CO2 27 mmol/L (21-32); CHLORIDE 96 mmol/L (101-111); CHOL/HDL RATIO 4.8 (<5.0); CHOLESTEROL 228 mg/dL; GFR - MDRD 70 (>89); GLUCOSE 179 mg/dL (70-100); HDL CHOLESTEROL 48 mg/dL; LDL CHOLESTEROL,CALCULATED 114 mg/dL; LDL/HDL RATIO 2.4 (<3.6); SODIUM 132 mmol/L (135-145); TOTAL PROTEIN 6.8 g/dL (6.7-8.2); VLDL CHOLESTEROL 66 mg/dL
[2017-11-30 20:29] LABS: RBC MORPHOLOGY (MULTIPLE) NORMAL APPEARANCE (NORMAL)
[2017-11-30 20:30] LABS: DIFFERENTIAL COMMENT MANUAL=AUTO DIFF; PLATELET ESTIMATE, MANUAL NORMAL (130-450,000) (NORMAL); PLATELET MORPHOLOGY RARE GIANT PLATELETS (NORMAL)
== END 2017-11-30 14:29 | disposition home or self-care (01) ==
LOC: LAB.WCP 14:28
PROVIDERS: ATTEND Family Medicine
DX: I10 Essential (primary) hypertension (principal); E78.5 Hyperlipidemia, unspecified; R73.01 Impaired fasting glucose; C61 Malignant neoplasm of prostate; F10.20 Alcohol dependence, uncomplicated
CPT/HCPCS: 36415; 80053; 80061; 83036; 83721; 84153; 84425; 85025

== ENCOUNTER 2018-01-24 10:22 | Outpatient (CLI) | payer MEDICARE, MEDICAID ==
--- NOTE | 2018-01-24 17:02 | XRAY Report ---
Reason: KNEE PAIN,LEFT Procedure Date: 01/24/2018 Accession Number: [id number] / [id number] Procedure: XR - Knee 2 View LT CPT Code: FULL RESULT: EXAM: LEFT KNEE RADIOGRAPHY EXAM DATE: 01/24/2018 10:45 AM. CLINICAL HISTORY: KNEE PAIN,LEFT. COMPARISON: None. TECHNIQUE: 2 views. FINDINGS: Bones: No fractures or bone lesions. Joints: No effusion. No subluxations. Joint spaces well-maintained. Soft Tissues: Arterial calcification. IMPRESSION: Negative left knee radiography for age. [facility]
== END 2018-01-24 10:23 | disposition home or self-care (01) ==
LOC: DI 10:22
PROVIDERS: ATTEND Family Medicine
DX: M25.562 Pain in left knee (principal)